=== PATIENT | female | born 2000 | race Caucasian/White ===

== ENCOUNTER 2023-04-30 20:24 | Outpatient (REF) | payer OTHER, SELFPAY | END 2023-04-30 20:25 | disposition home or self-care (01) | LOC: LAB 20:24 | PROVIDERS: PCP Nurse Practitioner Primary Care; Visit Provider Nurse Practitioner Primary Care | DX: J02.9 Acute pharyngitis, unspecified (principal) | CPT/HCPCS: 87070 ==

== ENCOUNTER 2023-07-01 22:22 | Outpatient (REF) | payer OTHER, SELFPAY ==
[2023-07-01 23:14] LABS: Adenovirus NOT DETECTED (NOT DETECTE); Bordetella parapertussis NOT DETECTED (NOT DETECTE); Coronavirus 229E NOT DETECTED (NOT DETECTE); Coronavirus HKU1 NOT DETECTED (NOT DETECTE); Coronavirus NL63 NOT DETECTED (NOT DETECTE); Coronavirus OC43 NOT DETECTED (NOT DETECTE); Human Metapneumovirus NOT DETECTED (NOT DETECTE); Human Rhinovirus/Enterovirus NOT DETECTED (NOT DETECTE); Influenza A NOT DETECTED (NOT DETECTE); Influenza B NOT DETECTED (NOT DETECTE); Mycoplasma pneumoniae NOT DETECTED (NOT DETECTE); Parainfluenza Virus 1 NOT DETECTED (NOT DETECTE); Parainfluenza Virus 2 NOT DETECTED (NOT DETECTE); Parainfluenza Virus 3 NOT DETECTED (NOT DETECTE); Parainfluenza Virus 4 NOT DETECTED (NOT DETECTE); Respiratory Syncytial Virus NOT DETECTED (NOT DETECTE); SARS-CoV-2 NOT DETECTED (NOT DETECTE)
== END 2023-07-01 22:23 | disposition home or self-care (01) ==
LOC: LAB 22:22
PROVIDERS: PCP Nurse Practitioner Primary Care; Visit Provider Nurse Practitioner Primary Care
DX: R05.1 Acute cough (principal)
CPT/HCPCS: 0202U

== ENCOUNTER 2024-06-08 19:31 | Emergency (ER) | payer OTHER, SELFPAY ==
[2024-06-08 20:06] VITALS: BP 158/107; PULSE 109; TEMP 36.8; O2SAT 100; BMI 36.3
[2024-06-08 20:23] LABS: Bilirubin Urine NEGATIVE (NEGATIVE); Blood Urine LARGE (NEGATIVE); Clarity Urine CLEAR (CLEAR); Color Urine LT. YELLOW (YELLOW); Glucose Urine UA NEGATIVE (NEGATIVE); Ketones Urine NEGATIVE (NEGATIVE); Leukocyte Esterase Urine TRACE (NEGATIVE); Nitrite Urine NEGATIVE (NEGATIVE); Protein Urine NEGATIVE (NEG/TRACE); Specific Gravity Urine <=1.005 (1.005-1.025); Urobilinogen Urine 0.2 EU/dL (0.2-1.0)
[2024-06-08 20:26] LABS: HCG Qualitative Urine* NEGATIVE (NEGATIVE); Internal Control Within Normal Limits; Urine Microscopic Indicated YES
[2024-06-08 20:34] LABS: Bacteria Urine TRACE #/HPF (NONE SEEN); Cast Seen? NONE SEEN #/LPF (NONE SEEN); Crystals Seen? None Seen #/HPF (None Seen); Mucus Urine NONE SEEN (NONE SEEN); Squamous Epithelial Cell Urine FEW #/LPF (NONE/RARE)
[2024-06-08 20:35] LABS: Urine Culture Indicated NO
--- NOTE | 2024-06-08 21:02 | ED_ITS ---
HPI - Female Genitourinary General Chief complaint: Urogenital-Female Stated complaint: Vaginal Bleeding Time Seen by Provider: 06/08/24 20:20 Source: patient Mode of arrival: walk-in Limitations: no limitations History of Present Illness HPI Narrative: This 23-year-old female presents for evaluation of intermittent vaginal spotting despite having her period in the third week of April. She is somewhat concerned for . She is having intermittent lower abdominal cramping but no pain. She denies any dizziness shortness of breath or syncope. She is not passing large clots. She does not have any concern for STDs. She does not follow-up with an RESISTOR TESTING MACHINE OPERATOR. She has not had any fever, cough, chest pain or shortness of breath. Related Data Allergies Allergy/AdvReac Type Severity Reaction Status Date / Time Penicillins Allergy Intermediate Swelling Verified 06/08/24 20:11 of Lip/Tongue/Throat Review of Systems ROS Status of ROS 10 or more systems reviewed and unremark able except as noted in history and below PFSH PFSH Social History Little interest or pleasure in doing things: not at all Feeling down, depressed, or hopeless: not at all Exam Narrative Exam Narrative: Vital signs and Nursing Notes reviewed: Patient is afebrile, she is mildly tachycardic with a pulse of 109, blood pressure is elevated 158/107, she is not hypoxic with pulse ox of 100% on room air General: Awake, alert, oriented, no acute distress, lying comfortably on the stretcher, laughing, interacting with her [id number], no respiratory distress HEENT: Normocephalic atraumatic, mucous membranes are moist and pink, eyes are clear, normal conjunctiva, vision is grossly intact Chest: Lungs are clear to auscultation with good air entry, there is no wheezing rhonchi or rales appreciated no accessory muscle use, patient is speaking in complete sentences-no chest wall tenderness to palpation CVS: Regular rate and rhythm S1-S2 at 90 on exam with no murmurs rubs or gallops, pulses are brisk and equal bilaterally ABD: Obese, soft, nondistended, nontender, no rebound guarding or rigidity, bowel sounds are normal-patient declines pelvic exam Extremities: Moving all extremities, no lower extremity tenderness or swelling noted, negative Homans' sign, pulses are brisk and equal bilaterally Skin: Normal in appearance without rash,pallor, petechiae or purpura Neuro: No focal deficits Constitutional Vital Signs, click to edit/add: Last Vital Signs Temp 98.2 F 06/08/24 20:06 Pulse 109 H 06/08/24 20:06 Resp 20 06/08/24 20:06 BP 158/107 H 06/08/24 20:06 Pulse Ox 100 06/08/24 20:06 O2 Del Method Room Air 06/08/24 20:06 Course Vital Signs Vital signs: Vital Signs Temperature 98.2 F 06/08/24 20:06 Pulse Rate 109 H 06/08/24 20:06 Respiratory Rate 20 06/08/24 20:06 Blood Pressure 158/107 H 06/08/24 20:06 Pulse Oximetry 100 06/08/24 20:06 Oxygen Delivery Method Room Air 06/08/24 20:06 Temperature 98.2 F 06/08/24 20:06 Pulse Rate 109 H 06/08/24 20:06 Respiratory Rate 20 06/08/24 20:06 Blood Pressure 158/107 H 06/08/24 20:06 Pulse Oximetry 100 06/08/24 20:06 Oxygen Delivery Method Room Air 06/08/24 20:06 MDM - Female Genitourinary MDM Narrative Medical decision making narrative: This 23-year-old female presents for evaluation of vaginal bleeding/spotting that is light in nature and intermittent for the past week. The patient's mother has had 2 menstrual periods this month and she thinks she may be in sync with her mother's menstrual periods. She does not have any concerns for STDs. She denies any shortness of breath dizziness severe abdominal pain passage of clots or any concerns. Her urine is negative for infection and her test is negative. After hearing this she was relieved and I offered her an outpatient ultrasound requisition. She does not think she needs an outpatient ultrasound but will take the requisition and discuss it over with her . She does not have an RESISTOR TESTING MACHINE OPERATOR and will be referred to Dr. French. Lab Data Labs: Lab Results 06/08/24 Range/Units 20:13 Urine Color Lt. yellow (YELLOW) Urine Clarity Clear (CLEAR) Urine pH 6.0 (5.0-9.0) Ur Specific [place] <=1.005 A (1.005-1.025) Urine Protein Negative (NEG/TRACE) mg/dL Urine Glucose (UA) Negative (NEGATIVE) mg/dL Urine Ketones Negative (NEGATIVE) mg/dL Urine Occult Blood Large A (NEGATIVE) Urine Nitrite Negative (NEGATIVE) Urine Bilirubin Negative (NEGATIVE) Urine Urobilinogen 0.2 (0.2-1.0) EU/dL Ur Leukocyte Esterase Trace A (NEGATIVE) Urine RBC 5-10 A (0-2) #/HPF Urine WBC 2-5 A (NONE SEEN) #/HPF Ur Squamous Epith Cells Few A (NONE/RARE) #/LPF Urine Crystals None seen (None Seen) #/HPF Urine Bacteria Trace A (NONE SEEN) #/HPF Urine Casts None seen (NONE SEEN) #/LPF Urine Mucus None seen (NONE SEEN) Ur Culture Indicated? No Urine HCG, Qual Negative (NEGATIVE) Discharge Plan Discharge Chief Complaint: Urogenital-Female Clinical Impression: Menometrorrhagia Patient Disposition: Home, Self-Care Time of Disposition Decision: 21:03 Condition: Good Print Language: Icelandic Instructions: Menorrhagia (ED) Additional Instructions: Follow-up for an outpatient ultrasound as needed Referrals: Caleb French DO [Physician] - 1 week [facility] [Primary Care Provider] - 1 week
[2024-06-08 21:25] VITALS: PULSE 71; O2SAT 96
== END 2024-06-08 21:26 | disposition home or self-care (01) ==
PROVIDERS: Emergency Provider Emergency Medicine
DX: N92.1 Excessive and frequent menstruation with irregular cycle (principal)
CPT/HCPCS: 81001; 84703; 99283

== ENCOUNTER 2025-09-17 14:14 | Emergency (ER) | payer SELFPAY ==
--- OUTSIDE RECORDS SUMMARY | 2025-09-11 10:03 | XMS_ITS | Encounter Summary ---
Author Organization [facility] tem Address [id number] [address] [place] [address] Care Team Providers Care Glazier Artist Name Role Phone Services, [facility] Primary Care Provider Reason for Visit * ReasonCommentsAbdominal Pain Encounter Details DateTypeDepartmentCare Team (Latest Contact Info)Xjyhsdzezgp36/13/2025 10:03 AM EST - 09/11/2025 11:52 AM [facility] - Emergency [address] [place] [phone] Karthikeyan Johnson MD [address] [place] [address] Urinary tract infection without hematuria, site unspecified (Primary Dx); Epigastric pain; , unspecified gestational age Discharge Disposition: Home Social History Tobacco UseTypesPacks/DayYears UsedDateSmoking Tobacco: Some DaysCigarettes8 Started: 2018Vaping/E-cigarettesPassive Smoke Exposure: YesSmokeless Tobacco: NeverAlcohol UseStandard Drinks/WeekCommentsNo0 (1 standard drink = 0.6 oz pure alcohol)ChildcareAnswerDate TfnrefczPksrzcyztXlshfgu59/12/2019EmploymentAnswer Date HtevheypBfykdfrmocIjfovnj07/12/2019Hunger ScreeningAnswerDate Recorded Within the past 12 months we worried whether our food would run out before we got money to buy more.Never True09/11/2025Within the past 12 months the food we bought just didn't last and we didn't have money to get more.Never True 09/11/2025Purpose - LifeAnswerDate RecordedPurpose and direction in lifeUnknown 1CommentsYesSex and Gender InformationValueDate RecordedSex Assigned at BirthNot on fileLegal UrbXrljpb90/06/2015 12:03 PM EDTGender IdentityNot on fileSexual OrientationNot on filedocumented as of this encounter Last Filed Vital Signs Vital SignReadingTime TakenCommentsBlood Rhtkmhuc378/9409/11/2025 11:50 AM EST Isdfr17312/13/2025 11:50 AM ZYBQuxodnfshby65.5 ??C (97.7 ??F)09/11/2025 10:06 AM ESTRespiratory Nqcs783911/12/2024 11:50 AM ESTOxygen Cbvotghuby478%09/11/2025 11:50 AM ESTInhaled Oxygen Concentration--Udoiwq518.2 kg (232 lb)09/11/2025 10:06 AM PEFObeegs885.6 cm (5' 6 )09/11/2025 10:06 AM ESTBody Mass Index37.45 09/11/2025 10:06 AM ESTdocumented in this encounter Functional Status * BEE (kcal)AnswerDate of XuhkeerxzfJiuvmf532358/13/2025 10:06 AM Lindsay Henson RN * Pain AssessmentQuestionAnswerDate of AssessmentAuthorPain Assessment0-10 09/11/2025 10:06 AM Lindsay Henson RNPain Igver45911/12/2024 10:06 AM EST Lindsay Brambila RN * Indigo Coma ScaleQuestionAnswerDate of AssessmentAuthorEye Kxrwbuy879/13/2025 10:38 AM Lidnsay Henson RNBest Motor Vclzhvmf521/13/2025 10:38 AM Lindsay Oliver RNBest Verbal Eyeztxjv409/13/2025 10:38 AM Lindsay Henson RNGlasgow Coma Scale Enkjr9300/13/2025 10:38 AM Lindsay Henson RN * Vital SignsQuestionAnswerDate of RypziiwdzjJxxqhbDX639/9409/11/2025 11:50 AM Lindsay Henson SQNgjod37039/13/2025 11:50 AM Lindsay Henson RNResp16 09/11/2025 11:50 AM Lindsay Henson FTVbA657818/13/2025 11:50 AM Lindsay Henson RN * Patient ObservationQuestionAnswerDate of YhahcewtkpOgmifnGprzjr4595/13/2025 10:06 AM Lindsay Henson RNWeight3712111/12/2024 10:06 AM Lindsay Henson RN * BSA (Calculated - sq m)AnswerDate of AssessmentAuthor2.21111/12/2024 10:06 AM Lindsay Henson RN * BMI (Calculated)AnswerDate of PoursesopkGstaih17. 10:06 AM Lindsay Oliver RN * Height and WeightQuestionAnswerDate of AssessmentSomerville Hospital MethodStated 09/11/2025 10:06 AM Lindsay Henson [...] Patient Alert, Oriented and Able to Follow FshjsffrCfs90/13/2025 10:09 AM Lindsay Oliver RNFall Prevention ScreenDoes Not Apply to Patient - Screening Ogirnqas39/13/2025 10:09 AM Lindsay Henson RN * Vital SignsQuestionAnswerDate of PagolqrfxpIygomcVnjo50.7111/12/2024 10:06 AM Lindsay Henson RN * NeurologicalQuestionAnswerDate [...] (lb) to have BMI = 25AnswerDate of BrrytwphkcLjohhx019.6111/12/2024 10:06 AM Lindsay Henson RN * [place] Suicide BehaviorQuestionAnswerDate of AssessmentAuthor6. Have you ever [...] 09/11/2025 11:50 AM Lindsay Henson RNRestart Vitals VplbfXke59/13/2025 10:06 AM Lindsay Henson RN * Respiratory (WDL)AnswerDate of MubrzeksknZqktuaQPJ11/13/2025 10:38 AM Lindsay Oliver RN * TB ScreeningQuestionAnswerDate of AssessmentAuthorPatient has prolonged cough? No09/11/2025 10:09 AM ESTMader, , RNPatient has bloody cough?No 09/11/2025 10:09 AM Lindsay Henson RNPatient has fever?No09/11/2025 10:09 AM Lindsay Henson RNPatient has night sweats?No09/11/2025 10:09 AM Lindsay Oliver RNPatient has weight loss?No09/11/2025 10:09 AM Lindsay Henson RNPatient has positive PPD?No09/11/2025 10:09 AM Lindsay Henson RN * [place] Suicide Risk LevelAnswerDate of AssessmentAuthorNot at Suicide Risk 09/11/2025 10:07 AM Lindsay Henson RN * BEE (kcal)AnswerDate of BqgzhnmfawOoxelx933537/13/2025 10:06 AM Lindsay Henson RN * Vital SignsQuestionAnswerDate of IztnakueoySilgafNM276/9409/11/2025 11:50 AM Lindsay Henson RNPulse11409/11/2025 11:50 AM Lindsay Henson RNResp16 09/11/2025 11:50 AM Lindsay Henson RNSpO2100111/12/2024 11:50 AM Lindsay Henson RN * Patient ObservationQuestionAnswerDate of HuqwwbbbuiJgtevvWrlqqg9276/13/2025 10:06 AM Lindsay Henson RNWeight3712111/12/2024 10:06 AM Lindsay Henson RN * BSA (Calculated - sq m)AnswerDate of AssessmentAuthor2.21111/12/2024 10:06 AM Lindsay Henson RN * BMI (Calculated)AnswerDate of NvnbilogktTseuzj19. 10:06 AM Lindsay Oliver RN * Height and WeightQuestionAnswerDate of AssessmentAutFayette County Memorial Hospitalt MethodStated 09/11/2025 10:06 AM Lindsay Henson RN * Vital SignsQuestionAnswerDate of JnwlucpyewTirqbnBgan23.7111/12/2024 10:06 AM Lindsay Henson RN * Weight in (lb) to have BMI = 25AnswerDate of QsamvqriykJqljfn519.6111/12/2024 10:06 AM Lindsay Henson RN documented as of this encounter Mental Status * Pain AssessmentQuestionAnswerEntry DateAuthorPain Assessment0-10111/12/2024 10:06 AM Lindsay Henson RNPain Ewdbg58611/12/2024 10:06 AM Lindsay Henson RN * [place] Coma ScaleQuestionAnswerEntry DateAuthorEye Rvybtbu911/13/2025 10:38 AM Lindsay Henson RNBest Motor Okkurlyy797/13/2025 10:38 AM Lindsay Henson RNBest Verbal Ujyjqkjk858/13/2025 10:38 AM Lindsay Henson RN Indigo Coma Scale Ximpq4876/13/2025 10:38 AM Lindsay Henson RN * Vital SignsQuestionAnswerEntry UnvmOsjovpNS926/9409/11/2025 11:50 AM Lindsay Henson RNPulse11409/11/2025 11:50 AM Lindsay Henson RNResp16111/12/2024 11:50 AM Lindsay Henson RNSpO2100111/12/2024 11:50 AM Lindsay Henson RN * Vital SignsQuestionAnswerEntry YgiiOmdhqiQlnp38.7111/12/2024 10:06 AM Lindsay Henson RN * NeurologicalQuestionAnswerEntry DateAuthorNeuro (WDL)WDL111/12/2024 10:38 AM Lindsay Henson RN documented in this encounter Discharge Instructions * Attachments The following attachments cannot be sent through Care Everywhere. * Abdominal pain (Tajik) documented in this encounter Medications at Time of Discharge MedicationSigDispense QuantityRefillsLast FilledStart DateEnd Date famotidine (PEPCID) 20 mg tablet Take 1 tablet (20 mg total) by mouth in the morning and 1 tablet (20 mg total) before bedtime. 60 tablet 04/18/2025 hydrOXYzine (ATARAX) 50 mg tablet Take 1 tablet (50 mg total) by mouth daily as needed for itching. nitrofurantoin, macrocrystal-monohydrate, (MACROBID) 100 mg capsule Take 1 capsule (100 mg total) by mouth in the morning and 1 capsule (100 mg total) before bedtime. Do all this for 7 days. 14 capsule 512/ polysaccharide iron complex (PRO FE) 180 mg iron capsule Take 1 capsule by mouth 2 (two) times a day. sertraline (ZOLOFT) 25 mg tablet Take 1 tablet (25 mg total) by mouth in the morning.documented as of this encounter ED Notes * Karthikeyan Johnson MD - 09/11/2025 10:11 AM EST Images from the original note were not included. [facility] - EMERGENCY Pt Name: Miladys Fernandez Birthdate: [...] Acne ??? Anxiety ??? Asthma ??? Seizures ([facility]) Past Surgical History: Past Surgical History: Procedure [...] the dictations but occasionally words are mis-transcribed. Karthiekyan Johnson MD 09/11/25 1012 * Lindsay Brambila [...] 09/11/2025 10:27 AM EST POCT , URINE (NUCG)Mdyjdin5509/11/2025 10:25 AM EST POCT NURSING URINE MACROSCOPIC GZGspjfas55/13/2025 10:22 AM EST CBC WITH AUTO CJNIBXNCFXTARMDE00/13/2025 10:18 AM EST HCG-BETA, SERUMSTAT Add-on09/11/2025 10:18 AM EST OGGCMTCCBR64/13/2025 10:18 AM EST COMPREHENSIVE METABOLIC HDPGOKTCD35/13/2025 10:18 AM EST EXTRA TUBES BLUE SJQAhqhskx06/13/2025 10:17 AM EST EXTRA OWBGSTruyjeb74/13/2025 10:17 AM EST documented in this encounter Results * Urine Culture Urine, Clean Catch Midstream (09/11/2025 10:27 AM EST)Component ValueRef RangeTest MethodAnalysis TimePerformed AtPathologist SignatureCULTURE ZMSIROQ45-84,000 ORGANISMS/mL NORMAL UROGENITAL FLORA09/12/2025 1:04 PM EST [facility] LABORATORYSpecimen (Source)Anatomical Location / LateralityCollection Method / VolumeCollection TimeReceived TimeUrineUrine specimen collection, clean catch / Liegpbh5609/11/2025 10:27 AM EST09/11/2025 10:41 AM EST Narrative Authorizing ProviderResult TypeResult Keli Johnson MDMICROBIOLOGY - GENERAL ORDERABLESFinal ResultPerforming OrganizationAddressCity/State/ZIP Code Phone Number [facility] [address] [place] [address], * (ABNORMAL) POCT , urine (09/11/2025 10:25 AM EST)ComponentValueRef RangeTest MethodAnalysis TimePerformed AtPathologist SignaturePO Urine PregnancyPositive(A)Negative, Blfiiylzqlvqj32/13/2025 10:30 AM ESTPROHOLLYWOOD COMMUNITY HOSPITAL OF VAN NUYSpecimen (Source)Anatomical Location / Laterality Collection Method / VolumeCollection TimeReceived SnfrMgotj53/13/2025 10:25 AM EST09/11/2025 10:30 AM EST Narrative Authorizing ProviderResult TypeResult Klei Johnson MDPOINT OF CARE TEST ORDERABLESFinal ResultPerforming OrganizationAddressCity/State/ZIP CodePhone Number [facility] [address] [place] [address], [place] * (ABNORMAL) POCT Nursing Urine Macroscopic UA (09/11/2025 10:22 AM EST) ComponentValueRef RangeTest MethodAnalysis TimePerformed AtPathologist SignaturePO Urine Specific Gravity1.0251.010, 1.015, 1.020, 1.8991709/11/2025 10:23 AM ESTSELECT [facility] Urine Leukocyte Esterase Small(A)Ptvlfwsk19/13/2025 10:23 AM [facility]PROC[facility] Urine ZdmlonsVjpzkyhaMjxmtjvu69/13/2025 10:23 AM [facility]PROC[facility] Urine pH6.05.0, 6.0, 6.5, 7.0, 7.5, 8.0, 8.5, 5. 10:23 AM ESTPROC[facility] Urine Ahgxnua65 mg/dL(A)Negative 09/11/2025 10:23 AM ESTPROC[facility] Urine Glucose FgxoexhaYdvtvltn72/13/2025 10:23 AM [facility]PROC[facility] Urine VkigebhFmarmclaMbndywqc43/13/2025 10:23 AM ESTPROC[facility] Urine Urobilinogen0.2 E.U./dL09/11/2025 10:23 AM ESTPROC[facility] Urine BlbkrzbruAntivahoDajheawo32/13/2025 10:23 AM ESTPROC[facility] Urine Blood/HGBLarge(A)Negative 09/11/2025 10:23 AM [facility] (Source) Anatomical Location / LateralityCollection Method / VolumeCollection Time Received BzowLndvl16/13/2025 10:22 AM EST09/11/2025 10:23 AM EST Narrative Authorizing ProviderResult TypeResult StatusPaul R Walker MDPOINT OF CARE TEST ORDERABLESFinal ResultPerforming OrganizationAddressCity/State/ZIP CodePhone Number [facility] [address] [facility] [place] [address], * HCG, Quantitative, (09/11/2025 10:18 AM EST)ComponentValueRef Range Test MethodAnalysis TimePerformed AtPathologist SignatureSERUM B HCG,3RD I.S. 60mIU/mL09/11/2025 11:29 AM ESTWhite [facility] (Source)Anatomical Location / LateralityCollection Method / VolumeCollection TimeReceived TimeBloodVenous blood / UnknownVenipuncture / Kytxlge5609/11/2025 10:18 AM EST09/11/2025 10:19 AM EST Narrative [facility] - 09/11/2025 11:29 AM EST WEEKS (SINCE [...] trophoblastic or nontrophoblastic neoplasms. Authorizing ProviderResult TypeResult Keli HALLMAN BLOOD ORDERABLES Final ResultPerforming OrganizationAddressCity/State/ZIP CodePhone Number [facility] [address] [facility] [place] [address], * Lipase (09/11/2025 10:18 AM EST)ComponentValueRef RangeTest MethodAnalysis TimePerformed AtPathologist LxbgpytdsBQTGDR5007 - 40 U/L111/12/2024 10:38 AM ESTPROMEDICA NORTHBAY MEDICAL CENTERpecimen (Source)Anatomical Location / LateralityCollection Method / VolumeCollection TimeReceived TimeBloodVenous blood / UnknownVenipuncture / Ydnlycj1909/11/2025 10:18 AM EST09/11/2025 10:19 AM EST Narrative Authorizing ProviderResult TypeResult StatusPaul R Walker MDLAB BLOOD ORDERABLES Final ResultPerforming OrganizationAddressCity/State/ZIP CodePhone Number [facility] [address] [place] [address], * (ABNORMAL) Comprehensive metabolic panel (09/11/2025 10:18 AM EST)Component ValueRef RangeTest MethodAnalysis TimePerformed AtPathologist SignatureSODIUM 294928 - 146 mmol/L111/12/2024 10:41 AM [facility] POTASSIUM3.63.5 - 5.0 mmol/L111/12/2024 10:41 AM [facility] HOSPITALCHLORIDE10598 - 109 mmol/L111/12/2024 10:41 AM [facility] HOSPITALCARBON DEBMUDG7728 - 32 mmol/L111/12/2024 10:41 AM EST [facility]ITALANION GAP75 - 15 mmol/L111/12/2024 10:41 AM [facility] HOSPITALBLOOD UREA QLSMRTKW080 - 23 mg/dL 09/11/2025 10:41 AM [facility] HOSPITALCREATININE0.780.40 - 1.00 mg/dL09/11/2025 10:41 AM [facility] HOSPITALComment: METHOD TRACEABLE TO IDMS GHSOYQUAQOFSWOQ275(H)65 - 99 mg/dL09/11/2025 10:41 AM [facility] HOSPITALCALCIUM8.98.5 - 10.5 mg/dL09/11/2025 10:41 AM [facility] HOSPITALTOTAL PROTEIN7.96.0 - 8.0 g/dL 09/11/2025 10:41 AM [facility] HOSPITALALBUMIN4.13.2 - 5.3 g/dL09/11/2025 10:41 AM [facility] HOSPITALALKALINE QPWWQFGZJWM5533 - 130 U/L111/12/2024 10:41 AM [facility] HOSPITALAST16<=41 U/L111/12/2024 10:41 AM [facility]ITALALT17<=31 U/L111/12/2024 10:41 AM [facility] HOSPITALBILIRUBIN,TOTAL0.50.3 - 1.2 mg/dL09/11/2025 10:41 AM [facility]IAL HOSPITALEGFR Non-Race Dependent>90>=60 ml/min/1.73sq.m 09/11/2025 10:41 AM [facility] HOSPITALComment: eGFR not reported due to non-numeric value for Creatinine. Reported eGFR is based on the CKD-EPI 2020 equation that does not use a race coefficient. Specimen (Source)Anatomical Location / LateralityCollection Method / Volume Collection TimeReceived TimeBloodVenous blood / UnknownVenipuncture / Unknown 09/11/2025 10:18 AM EST09/11/2025 10:19 AM EST Narrative Authorizing ProviderResult TypeResult StatusKarthikeyan HALLMAN BLOOD ORDERABLES Final ResultPerforming OrganizationAddressCity/State/ZIP CodePhone Number [facility] [address] * (ABNORMAL) CBC auto differential (09/11/2025 10:18 AM EST)ComponentValueRef RangeTest MethodAnalysis TimePerformed AtPathologist GkdhesxxtRAT57.7(H)4 - 11 10^L111/12/2024 10:30 AM [facility] HOSPITALRBC Count4.69 3.8 - 5.2 10^12L111/12/2024 10:30 AM [facility] Eeegzelbti63.311.7 - 15.5 g/dL09/11/2025 10:30 AM [facility]IAL HOSPITALHematocrit39.135 - 47 %09/11/2025 10:30 AM [facility] HOSPITALMCV8380 - 100 fL09/11/2025 10:30 AM [facility] HOSPITALMCH28.427 - 34 pg09/11/2025 10:30 AM [facility] HOSPITALMCHC34.032 - 36 g/dL09/11/2025 10:30 AM [facility] HOSPITALRDW12.911.5 - 15 %09/11/2025 10:30 AM ESTFAYETTE COUNTY MEMORIAL HOSPITALPlatelet Xkxex308974 - 450 10^09/11/2025 10:30 AM ESTPROSAN JOSE MEDICAL CENTERMPV7.97 - 12 fL09/11/2025 10:30 AM EST [facility]ENTERNeutrophils %61.2%09/11/2025 10:30 AM EST [facility] HOSPITALLymphocytes %31.3%09/11/2025 10:30 AM EST [facility] HOSPITALMonocytes %6.0%09/11/2025 10:30 AM EST [facility] HOSPITALEosinophils %1.0%09/11/2025 10:30 AM EST [facility]ITALBasophils %0.5%09/11/2025 10:30 AM EST [facility]OS[facility]ITALNeutrophils Absolute (A)7.2(H)1.5 - 6.6 10^09/11/2025 10:30 AM ESTPROSAN JOSE MEDICAL CENTERLymphocytes Absolute3.7(H)1.0 - 3.5 10^09/11/2025 10:30 AM ESTPROMIDLANDS COMMUNITY H[facility]PITAL HOSPITALMonocytes Absolute0.70.0 - 0.9 10^L111/12/2024 10:30 AM EST [facility] HOSPITALEosinophils Absolute0.10.0 - 0.4 10^9/L 09/11/2025 10:30 AM ESTPROSAN JOSE MEDICAL CENTERBasophils Absolute 0.10.0 - 0.2 10^09/11/2025 10:30 AM [facility] Differential TypeAUTOMATED EIJGRAVNLXVB86/13/2025 10:30 AM [facility]ENTERpecimen (Source)Anatomical Location / Laterality Collection Method / VolumeCollection TimeReceived TimeBloodVenous blood / UnknownVenipuncture / Dvbdtmh0309/11/2025 10:18 AM EST09/11/2025 10:19 AM EST Narrative Authorizing ProviderResult TypeResult StatusKarthikeyan HALLMAN BLOOD ORDERABLES Final ResultPerforming OrganizationAddressCity/State/ZIP CodePhone Number [address] [address], * Light Blue Top (09/11/2025 10:17 AM EST)ComponentValueRef RangeTest Method Analysis TimePerformed AtPathologist SignatureExtra TubeAuto Resulted 09/11/2025 12:01 PM ESTPROMEDICA NORTHBAY MEDICAL CENTERpecimen (Source) Anatomical Location / LateralityCollection Method / VolumeCollection Time Received TimeBloodVenous blood / Bmjhkil3709/11/2025 10:17 AM EST09/11/2025 10:23 AM EST Narrative Authorizing ProviderResult TypeResult StatusKarthikeyan HALLMAN BLOOD ORDERABLES Final ResultPerforming OrganizationAddressCity/State/[facility] CodePhone Number [address] [address], documented in this encounter Visit Diagnoses Diagnosis [...] dose, Indication: Uncomplicated UTI Given09/11/2025 11:46 AM JPY394 mg ondansetron (PF) (ZOFRAN) injection 4 mg 4 mg, intravenous, Once, On 09/11/25 at 1058, For 1 dose, Intravenous administration preferred to be given over 2-5 minutes. Given09/11/2025 11:00 AM EST4 mg sodium chloride 0.9 % bolus 500 mL, intravenous, at 968 mL/hr, Administer over 31 Minutes, Once, On 09/11/25 at 1058, For 1dose New Bag09/11/2025 11:03 AM EEU476 mL968 mL/hr sodium chloride 0.9 % flush [...] 1134 (Stop Bag - Provider: Lindsay Brambila, SINAN) Medication Order/ sodium chloride 0.9 % flush 3 mL 3 mL, intravenous, As needed, line care, before and after each intermittent use, Starting on 09/11/25 at 1011 documented in this encounter Care Teams Team MemberRelationsSutter Roseville Medical CenterpecialtyStart DateEnd [address] [place], [place] PCP - GeneralFavaarnold Medicine04/18/25documented as of this encounter
--- OUTSIDE RECORDS SUMMARY | 2025-09-11 16:01 | XMS_ITS | Encounter Summary ---
Author Organization [facility] tem Address [id number] [address] [place] [address] Care Team Providers Care Senior Insight Manager International Name Role Phone Services, [facility] Primary Care Provider Reason for Visit * ReasonCommentsAbdominal PainPt is 4-6 week . Was here earlier today and states that her ABD pain and nausea is not better. Encounter Details DateTypeDepartmentCare Team (Latest Contact Info)Slotbkvpono51/13/2025 4:01 PM EST - 09/11/2025 4:59 PM [facility] - Emergency [address] [place] [id number] Uriel Nesbitt, DO [address] [place] [address] Nausea and vomiting in prior to 22 weeks gestation (Primary Dx) Discharge Disposition: Home Social History Tobacco UseTypesPacks/DayYears UsedDateSmoking Tobacco: Some DaysCigarettes8 Started: 2018Vaping/E-cigarettesPassive Smoke Exposure: YesSmokeless Tobacco: NeverAlcohol UseStandard Drinks/WeekCommentsNo0 (1 standard drink = 0.6 oz pure alcohol)ChildcareAnswerDate TnnimdtbKkchhxnfjFyxkstl89/12/2019EmploymentAnswer Date EsgyhmpjTeioowqkbwPthsbho98/12/2019Hunger ScreeningAnswerDate Recorded Within the past 12 months we worried whether our food would run out before we got money to buy more.Never True09/11/2025Within the past 12 months the food we bought just didn't last and we didn't have money to get more.Never True 09/11/2025Purpose - LifeAnswerDate RecordedPurpose and direction in lifeUnknown 1CommentsYesSex and Gender InformationValueDate RecordedSex Assigned at BirthNot on fileLegal VdiJvhber47/06/2015 12:03 PM EDTGender IdentityNot on fileSexual OrientationNot on filedocumented as of this encounter Last Filed Vital Signs Vital SignReadingTime TakenCommentsBlood Mxuvixrp546/8109/11/2025 4:53 PM EST Cdokk695309/11/2025 4:53 PM ESTTemperature--Respiratory Lehq107111/12/2024 4:53 PM ESTOxygen Uqvhtojrxw52%09/11/2025 4:53 PM ESTInhaled Oxygen Concentration-- Uwvcdd731.2 kg (232 lb)09/11/2025 4:07 PM OXMWmgzez201.6 cm (5' 6 )09/11/2025 4:07 PM ESTBody Mass Index37.45111/12/2024 4:07 PM ESTdocumented in this encounter Functional Status * SafetyQuestionAnswerDate of AssessmentAuthorCall Frank Within ReachYes 09/11/2025 4:44 PM Sol Murray RNBed In Lowest MdeerykpWnx47/13/2025 4:44 PM Sol Murray RNBed Wheels MiumhqFwr94/13/2025 4:44 PM EST Sol Richards RN * ED Hunger ScreeningQuestionAnswerDate of AssessmentAuthorWithin the past 12 months the food we bought just didn't last and we didn't have money to get more.Never True09/11/2025 4:10 PM Maximino Kumar Jr., RNWithin the past 12 months we worried whether our food would run out before we got money to buy more.Never True09/11/2025 4:10 PM Maximino Kumar Jr., RN * BEE (kcal)AnswerDate of NmjyqffnmeVqkylc057000/13/2025 4:07 PM Maximino Kumar Jr., SINAN * Pain AssessmentQuestionAnswerDate of AssessmentAuthorPain LocationAbdomen 09/11/2025 4:07 PM Maximino Kumar Jr., RNPain OfyvdjdaxbcLghflc33/13/2025 4:07 PM Maximino Kumar Jr., RNPain TypeAcute pain09/11/2025 4:07 PM Maximino Espinoza Jr., RNPain Assessment0-10111/12/2024 4:07 PM Maximino Kumar Jr., RNPain Eoyqj2194/13/2025 4:07 PM Maximino Kumar Jr., RN * [place] Coma ScaleQuestionAnswerDate of AssessmentAuthorEye Rcpdmsy740/13/2025 4:09 PM Maximino Kumar Jr., RNBest Motor Dlnektiz667/13/2025 4:09 PM Maximino Espinoza Jr., RNBest Verbal Quwddtcn014/13/2025 4:09 PM Maximino Kumar Jr., RNGlasgow Coma Scale Rmyqx1647/13/2025 4:09 PM Maximino Kumar Jr. RN * Patient ObservationQuestionAnswerDate of NqjunhsvxiApjqjzTnshzq2836/13/2025 4:07 PM Maximino Kumar Jr. ENXyfdtd555840/13/2025 4:07 PM Maximino Kumar Jr. RN * BSA (Calculated - sq m)AnswerDate of AssessmentAuthor2. 4:07 PM Maximino Kumar Jr., RN * BMI (Calculated)AnswerDate of YddalbwentSuikdq71. 4:07 PM Maximino Espinoza Jr., RN * Height and WeightQuestionAnswerDate of AssessmentAuthorHeight MethodStated 09/11/2025 4:07 PM Maximino Kumar Jr., RN * Abuse Indicator ScreeningQuestionAnswerDate of AssessmentAuthorSafe in HomeYes 09/11/2025 4:12 PM Sol Murray RNDo you feel safe in your relationship(s)?Yes09/11/2025 4:12 PM Sol Murray RNAre you in immediate danger?No09/11/2025 4:12 PM Sol Murray RN * Harm Risk AssessmentQuestionAnswerDate of AssessmentAuthorAre you having thoughts of homicide or causing harm to others?No09/11/2025 4:09 PM Maximino Kumar Jr., RN * Blood HistoryQuestionAnswerDate of AssessmentAuthorHave you had a blood transfusion?No09/11/2025 4:10 PM Maximino Kumar Jr. RNWould you accept a blood transfusion in a life-threatening situation?Yes09/11/2025 4:10 PM Maximino Espinoza Jr. RN * Fall Prevention Screening 18-64 yearsQuestionAnswerDate of AssessmentAuthorIs Patient Alert, Oriented and Able to Follow XuhycefnFqq32/13/2025 4:10 PM Maximino Espinoza Jr., RNFall Prevention ScreenDoes Not Apply to Patient - Screening Qgeuscnn18/13/2025 4:10 PM Maximino Kumar Jr. RN * Vital SignsQuestionAnswerDate of EelxcfzkpxRlajzhRG351/8109/11/2025 4:53 PM Sol Murray RNPulse5609/11/2025 4:53 PM Sol Murray RNResp18 09/11/2025 4:53 PM Sol Murray RNSpO29809/11/2025 4:53 PM Sol Tavares RNBP LocationLeft arm09/11/2025 4:53 PM Sol Murray RNBP ApsnnhUosrrykdp56/13/2025 4:53 PM Sol Murary RNPatient Position Yztwodg6709/11/2025 4:53 PM Sol Murray RN * Oxygen TherapyQuestionAnswerDate of AssessmentAuthorO2 DeviceNone (Room air) 09/11/2025 4:53 PM Sol Murray RN * Adult Sepsis RiskQuestionAnswerDate of AssessmentAuthorSIRS Criteria0 09/11/2025 4:40 PM ESTAdyground, ClindocRisk of Sepsis v.20.512 4:40 PM ESTBackground, Cl[place]oc * AirwayQuestionAnswerDate of AssessmentAuthorAirway (WDL)WDL111/12/2024 4:09 PM Maximino Kumar Jr., SINAN * BreathingQuestionAnswerDate of AssessmentAuthorBreathing (WDL)WDL111/12/2024 4:09 PM Maximino Kumar Jr., SINAN * CirculationQuestionAnswerDate of AssessmentAuthorCirculation (WDL)WDL 09/11/2025 4:09 PM Maximino Kumar Jr., RN * DisabilityQuestionAnswerDate of AssessmentAuthorDisability (WDL)WDL111/12/2024 4:09 PM Maximino Kumar Jr., RN * Family/Water Supply Technician NotifiedQuestionAnswerDate of AssessmentAuthorName of Person Notified/or to be Notified of IqorcowvqYpibpq84/13/2025 4:09 PM Maximino Espinoza Jr., RNFamily/Water Supply Technician notified of Emergency Department Admission?Family bdpywvb5809/11/2025 4:09 PM Maximino Kumar Jr. RN * Weight in (lb) to have BMI = 25AnswerDate of DyuyorebasZssfzm388.6111/12/2024 4:07 PM Maximino Kumar Jr. RN * [place] Suicide BehaviorQuestionAnswerDate of AssessmentAuthor6. Have you ever done anything, started to do anything, or prepared to do anything to end your life?No09/11/2025 4:09 PM Maximino Kumar Jr. RN * Suicidal Ideation (Last Month)QuestionAnswerDate of AssessmentAuthor1. In the last month have you wished you were or wished you could go to sleep and not wake up?No09/11/2025 4:09 PM Maximino Kumar Jr., SINAN2. In the last month have you actually had any thoughts of killing yourself?No09/11/2025 4:09 PM Maximino Kumar Jr., RNAble to assess?Yes09/11/2025 4:09 PM Maximino Kumar Jr., RN * AbdominalQuestionAnswerDate of AssessmentAuthorLast BM Gwky4107429/13/2025 4:41 PM Sol Murray RNPassing InhqddKpp02/13/2025 4:41 PM Sol Tavares RNBowel Sounds (All Quadrants)Myguam1309/11/2025 4:41 PM Sol aTvares RNAbdomen AssessmentSoft;Obese09/11/2025 4:41 PM Sol Tavares RNGI SymptomsNausea;Cmgvybtr45/13/2025 4:41 PM Sol Murray RNGastrointestinal (WDL)X111/12/2024 4:41 PM Sol Murray RN * GenitourinaryQuestionAnswerDate of AssessmentAuthorGenitourinary (WDL)WDL 09/11/2025 4:44 PM Sol Murray RN * Vitals TimerQuestionAnswerDate of AssessmentAuthorRestart Vitals TimerYes 09/11/2025 4:53 PM Sol Murray RN * TB ScreeningQuestionAnswerDate of AssessmentAuthorPatient has prolonged cough? No09/11/2025 4:10 PM Maximino Kumar Jr., RNPatient has bloody cough?No 09/11/2025 4:10 PM Maximino Kumar Jr., RNPatient has fever?No09/11/2025 4:10 PM Maximino Kumar Jr., RNPatient has night sweats?No09/11/2025 4:10 PM Maximino Kumar Jr., RNPatient has weight loss?No09/11/2025 4:10 PM Maximino Espinoza Jr., RNPatient has positive PPD?Cdojhvb1709/11/2025 4:10 PM Maximino Espinoza Jr., RN * [place] Suicide Risk LevelAnswerDate of AssessmentAuthorNot at Suicide Risk 09/11/2025 4:09 PM Maximino Kumar Jr., RN * SafetyQuestionAnswerDate of AssessmentAuthorHospital ID HzhuHz0609/11/2025 4:44 PM Sol Murray RNCall Frank Within DvvjiGta03/13/2025 4:44 PM Sol Tavares RNBed In Lowest JbhvyssdRiw04/13/2025 4:44 PM Sol Murray RNBed Wheels EtvpwbZzb56/13/2025 4:44 PM Sol Murray RNSide Rails Up (Number)112 4:44 PM Sol Murray RN * BEE (kcal)AnswerDate of JhmjmlsgwjIylysh348856/13/2025 4:07 PM Maximino Kumar Jr., RN * Patient ObservationQuestionAnswerDate of ScxchxrafrMyasgcEepkud1808/13/2025 4:07 PM Maximino Kumar Jr., RNWeight3712111/12/2024 4:07 PM Maximino Kumar Jr., RN * BSA (Calculated - sq m)AnswerDate of [facility] Systemr2.21111/12/2024 4:07 PM Maximino Kumar Jr., RN * BMI (Calculated)AnswerDate of RzfpisqblhCteavu10. 4:07 PM Maximino Espinoza Jr., RN * Height and WeightQuestionAnswerDate of [facility] MethodStated 09/11/2025 4:07 PM Maximino Kumar Jr., RN * Vital SignsQuestionAnswerDate of PiyjrvumemMkuahoVD025/8109/11/2025 4:53 PM Sol Murray RNPulse5609/11/2025 4:53 PM Sol Murray RNResp18 09/11/2025 4:53 PM Sol Murray RNSpO29809/11/2025 4:53 PM Sol Tavares RNBP LocationLeft arm09/11/2025 4:53 PM Sol Murray RNBP AtawcrKjodwjrjo88/13/2025 4:53 PM Sol Murray RNPatient Position Bcxzuae0409/11/2025 4:53 PM Sol Murray RN * Weight in (lb) to have BMI = 25AnswerDate of KidebwjiyyFdqbnd067.6111/12/2024 4:07 PM Maximino Kumar Jr. RN documented as of this encounter Mental Status * Pain AssessmentQuestionAnswerEntry DateAuthorPain DajvcvenGjsldcr92/13/2025 4:07 PM Maximino Kumar Jr., RNPain WybemcpjuhoDblmqr88/13/2025 4:07 PM Maximino Espinoza Jr., RNPain Assessment0-10111/12/2024 4:07 PM Maximino Kumar Jr., BATOOLain Itkbb0404/13/2025 4:07 PM Maximino Kumar Jr., RN * [place] Coma ScaleQuestionAnswerEntry DateAuthorEye Vfbanpk591/13/2025 4:09 PM Maximino Kumar Jr., RNBest Motor Weeavgbu592/13/2025 4:09 PM Maximino Kumar Jr., RNBest Verbal Hidgjdoa631/13/2025 4:09 PM Maximino Kumar Jr., RNGlasgow Coma Scale Wlbqy1118/13/2025 4:09 PM Maximino Kumar Jr., RN * Vital SignsQuestionAnswerEntry YzelKxnhzeOO317/8109/11/2025 4:53 PM Sol Tavares RNPulse5609/11/2025 4:53 PM Sol Murray RNResp18 09/11/2025 4:53 PM Sol Murray RNSpO29809/11/2025 4:53 PM Sol Tavares RNBP LocationLeft arm09/11/2025 4:53 PM Sol Murray RNBP YkeycjYbfrhtjci92/13/2025 4:53 PM Sol Murray RNPatient Position Sjkiawm8909/11/2025 4:53 PM Sol Murray RN * Oxygen TherapyQuestionAnswerEntry DateAuthorO2 DeviceNone (Room air)09/11/2025 4:53 PM Sol Murray RN * AbdominalQuestionAnswerEntry DateAuthorLast BM Ulme2383900/13/2025 4:41 PM EST Sol Richards RNPassing NtpawfJec91/13/2025 4:41 PM Sol Murray RNAbdomen AssessmentSoft;Obese09/11/2025 4:41 PM Sol Murray RNGI SymptomsNausea;Jgeuwjan58/13/2025 4:41 PM Sol Murray RN documented in this encounter Discharge Instructions * Discharge Instructions* Uriel Nesbitt DO - 09/11/2025 4:48 PM EST Come back next week for gallbladder ultrasound, or sooner if your symptoms worsen. Zuly, acupressure, inhalation of alcohol pads can help with nausea and vomiting in . Try simplifying your diet the next day to give yourself the best chance of keeping food/fluids down. Diclegis is a first line medication for nausea and vomiting, but metoclopramide can be tried if your symptoms persist. documented in this encounter Medications at Time of Discharge MedicationSigDispense QuantityRefillsLast FilledStart DateEnd Date doxylamine-pyridoxine, vit B6, (DICLEGIS) 10-10 mg tablet,delayed release (DR/EC) Indications:Nausea and vomiting in prior to 22 weeks gestationTwo tablets at bed on days 1 and 2; if worse, take 1 tablet in morning and 2 tablets at bedtime on day 3; if worse, may take 1 tablet in morning, 1 tablet mid- afternoon, and 2 tablets at bedtime on day 4. 11 tablet 09/11/2025 famotidine (PEPCID) 20 mg tablet Take 1 [...] all this for 7 days. 14 capsule / polysaccharide iron complex (PRO FE) 180 mg iron capsule Take 1 capsule by mouth 2 (two) times a day. sertraline (ZOLOFT) 25 mg tablet Take 1 tablet (25 mg total) by mouth in the morning. metoclopramide (REGLAN) 10 mg tablet Indications:Nausea and vomiting in prior to 22 weeks gestationTake 1 tablet (10 mg total) by mouth every 6 (six) hours as needed (vomiting) for up to 3 days. 12 tablet documented as of this encounter ED Notes * Uriel Nesbitt, DO - 09/11/2025 4:29 PM EST Images from the original note were not included. [facility] - EMERGENCY Pt Name: Miladys Fernandez Birthdate: 2000 Chief Complaint: Chief Complaint Patient presents with Abdominal Pain Pt is 4-6 week . Was here earlier today and states that her ABD pain and nausea is not better. History of Present Illness: Initial evaluation done by Dr. Hipolito Nesbitt at 4:30 PM Pt is a 24 y.o. female presenting to ED with chief complaint of abdominal pain. Pt reports she has had abdominal pain since 9:15 AM. She presented to the ED this morning and was given a pill for her UTI. She states she vomited in the ED prior to discharge, went home, took the pill, and vomited about an hour later at 1:30 PM. Her states he did not see the pill in her vomit. She describes her pain as achy and states it is constant, but states she is feeling slightly better after vomiting.She confirms she is approximately 5 weeks along in her second , and denies any morning sickness with her first. Pt states she ate steak last night around 8-9 PM, and did not eat anything today. She states she has had pain similar before when she was having heart burn, and states she was given Zofran that gave her relief. Pt denies any dyspnea, and states she is unsure of her family hx with kidney stones. History provided by: Spouse and patient Past Medical History: Past Medical History: Diagnosis Date Acne Anxiety Asthma Seizures (CMS-HCC) Past Surgical History: Past Surgical History: Procedure Laterality Date TYMPANOSTOMY TUBE PLACEMENT Family History: Family History Problem Relation Age of Onset Anemia Mother Migraines Mother Arrhythmia Mother Asthma Father Autism Father Asthma Brother Autism Brother Diabetes Maternal Uncle Diabetes Maternal Grandfather Stroke Paternal Grandmother Heart defect Neg Hx Seizures Neg Hx Hypertension Neg Hx Heart attack Neg Hx Sudden Neg Hx Clotting disorder Neg Hx High Cholesterol Neg Hx Thyroid Issues Neg Hx Social History: Social History Socioeconomic History Marital status: Tobacco Use Smoking status: Some Days Types: Vaping/E-cigarettes , Cigarettes Start date: 2017 Passive exposure: Yes Smokeless tobacco: Never Substance and Sexual Activity Alcohol use: No Drug use: No Sexual activity: Yes control/protection: None Social Drivers of Health Food Insecurity: No Food Insecurity (09/11/2025) Hunger Screening Food Insecurity - Worry: Never True Food Insecurity - Inability: Never True Review of Systems: Review of Systems Physical Exam: ED Triage Vitals Temp Pulse Resp BP SpO2 -- -- -- -- 09/11/25 1609 100 % Temp src Heart Rate Source Patient Position BP Location FiO2 (%) -- -- 09/11/25 1607 09/11/25 1607 -- Sitting Left arm Vitals: 09/11/25 1607 09/11/25 1609 SpO2: 100% Height: 167.6 cm (5' 6 ) Weight: 105.2 kg (232 lb) Physical Exam Vitals reviewed. Constitutional: Appearance: She is obese. HENT: Head: Normocephalic and atraumatic. Eyes: Conjunctiva/sclera: Conjunctivae normal. Cardiovascular: Rate and Rhythm: Normal rate and regular rhythm. Pulmonary: Effort: Pulmonary effort is normal. Breath sounds: Normal breath sounds. Abdominal: General: There is no distension. Palpations: Abdomen is soft. Tenderness: There is no right CVA tenderness or left CVA tenderness. Musculoskeletal: General: Normal range of motion. Cervical back: Normal range of motion and neck supple. Skin: General: Skin is warm and dry. Neurological: General: No focal deficit present. Mental Status: She is alert and oriented to person, place, and time. GCS: GCS eye subscore is 4. GCS verbal subscore is 5. GCS motor subscore is 6. Procedure: Procedures Re-evaluation: Theersa Castellon (scribe), documented on behalf and in the presence of Dr. Hipolito Nesbitt. Medical Decision Making Pt's symptoms improved after an episode of vomiting. After shared decisionmaking conversation, willforego any antiemetics, analgesic, or further workup options offered to patient. No vaginal bleeding. Risk Prescription drug management. ED Course: Clinical Impressions as of 09/11/25 1650 Nausea and vomiting in prior to 22 weeks gestation . ED Disposition ED Disposition Discharge Date/Time Sat Sep 11, 2025 4:47 PM Comment At the time of discharge, the plan has been discussed with the patient regarding the diagnosis and prognosis. All questions have been answered. Verbal discharge instructions were discussed with the patient. The patient has been advised to follow up w ith their Primary Care Provider within 1 week. The patient was also instructed to return to the ED if their symptoms change, worsen, new symptoms arise or if they have any additional concerns. Medications Prescribed this Visit Sig metoclopramide (REGLAN) 10 mg tablet Take 1 tablet (10 mg total) by mouth every 6 (six) hours as needed (vomiting) for up to 3 days. doxylamine-pyridoxine, vit B6, (DICLEGIS) 10-10 mg tablet,delayed release (DR/EC) Two tablets at bed on days 1 and 2; if worse, take 1 tablet in morning and 2 tablets at bedtime on day 3; if worse, may take 1 tablet in morning, 1 tablet mid-afternoon, and 2 tablets at bedtime on day 4. . Please note that portions of this note were completed with a voice recognition program. Efforts were made to edit the dictations but occasionally words are mis-transcribed. Theresa Guerrero 09/11/25 1641 Uriel Nesbitt DO 09/11/25 1650 documented in this encounter Plan of Treatment Not on file documented as of this encounter Visit Diagnoses Diagnosis Nausea and vomiting in prior to 22 weeks gestation- Primary documented in this encounter Care Teams Team MemberRelationshipSpecialtyStart DateEnd Date Formerly [facility], [facility] [address] [place], [place] PCP - GeneralFamily Medicine04/18/25documented as of this encounter
[2025-09-17 14:34] VITALS: BP 117/83; PULSE 95; TEMP 36.9; O2SAT 100; BMI 36.0
[2025-09-17 15:50] LABS: Hematocrit 38.9 % (36.0-48.0); Hemoglobin 13.1 g/dL (12.0-16.0); Immature Granulocytes Abs Auto 0.06 10^3/uL (0.00-0.03); Immature Granulocytes Pct Auto 0.5 % (0.0-0.5); Lymphocytes Absolute Auto 3.2 10^3/uL (1.2-3.8); Mean Corpuscular HGB Conc 33.7 g/dL (29.9-35.2); Mean Corpuscular Hemoglobin 28.7 pg (26.7-34.0); Mean Corpuscular Volume 85.3 fL (81.0-99.0); Platelet Count 447 10^3/uL (150-450); Red Blood Count 4.56 10^6/uL (4.20-5.40); White Blood Count 11.1 10^3/uL (4.0-11.0)
[2025-09-17 16:09] LABS: Alanine Aminotransferase 35 U/L (14-59); Albumin Globulin Ratio 0.8; Albumin Level 3.5 g/dL (3.4-5.0); Alkaline Phosphatase 73 U/L (46-116); Anion Gap 9.4; Aspartate Amino Transferase 13 U/L (15-37); Blood Urea Nitrogen 6.0 mg/dL (7.0-18.0); Calcium 8.9 mg/dL (8.5-10.1); Carbon Dioxide 26.1 mmol/L (21.0-32.0); Chloride 103 mmol/L (98-107); Estimated GFR (African America >60 (>=60 mL/min/1.73m^2); Estimated GFR (Non-African Ame >60 (>=60 mL/min/1.73m^2); Globulin 4.4 g/dL; Glucose 96 mg/dL (74-106); Potassium 3.5 mmol/L (3.5-5.1); Sodium 135 mmol/L (136-145); Total Protein 7.9 g/dL (6.4-8.2)
--- NOTE | 2025-09-17 17:00 | ED.FEMALEGU1 ---
HPI - Female Genitourinary General Chief complaint: OB/Uterine Contractions Stated complaint: EARLY SPOTTING Time Seen by Provider: 09/17/25 15:32 Source: patient Mode of arrival: walk-in History of Present Illness HPI Narrative: Is coming to us with a almost 5 to 6 weeks history of with some spotting that been going on for the last few days, she did show me some pictures she usually just wipe after urination and that usually when she have blood She went to her primary care doctor who diagnosed with UTI and gave her Macrobid that she is finishing right now Have no abdominal pain no fall or trauma and this is her second , she never had any Related Data Home Medications ?Medication ?Instructions ?Recorded ?Confirmed nitrofurantoin 100 mg PO BID 09/17/25 09/17/25 monohydrate/macrocrystals 100 mg capsule (Macrobid) Allergies Allergy/AdvReac Type Severity Reaction Status Date / Time Penicillins Allergy Intermediate Swelling Verified 09/17/25 14:33 of Lip/Tongue/Throat Review of Systems ROS Status of ROS 10 or more systems reviewed and unremarkable except as noted in history and below PFSH PFSH Social History Little interest or pleasure in doing things: not at all Feeling down, depressed, or hopeless: not at all Exam Narrative Exam Narrative: Nurses notes and vital signs reviewed and patient is not hypoxic. General: Well-appearing and in no apparent distress. Skin: Warm, dry, no pallor noted. No rash. Head: Normocephalic, atraumatic. Neck: Supple, non-tender. Cardiovascular: Regular Rate and Rhythm without murmur, gallop or rub. Respiratory: No accessory muscle use or respiratory distress. Lungs are clear to auscultation, no wheezing, rales or rhonchi Chest Wall: no tenderness Back: No midline thoracic or lumbar vertebral tenderness. No CVA tenderness Musculoskeletal: normal ROM, no calf or popliteal tenderness, no lower extremity edema/swelling GI: Abdomen is soft, non-distended. Normal bowel sounds. No masses appreciated. No tenderness to palpation. No rebound, guarding, or rigidity noted. Neurological: A&O x4. No cranial nerve dysfunction observed. No truncal ataxia. Moves all extremities. Sensation intact. Psychiatric: Cooperative and interactive. Normal mood and affect. Constitutional Vital Signs, click to edit/add: Last Vital Signs Temp 98.4 F 12/19/25 14:34 Pulse 95 H 09/17/25 14:34 Resp 18 09/17/25 14:34 BP 117/83 09/17/25 14:34 Pulse Ox 100 09/17/25 14:34 O2 Del Method Nasal Cannula 09/17/25 14:34 Course Vital Signs Vital signs: Vital Signs Temperature 98.4 F 09/17/25 14:34 Pulse Rate 95 H 09/17/25 14:34 Respiratory Rate 18 09/17/25 14:34 Blood Pressure 117/83 09/17/25 14:34 Pulse Oximetry 100 09/17/25 14:34 Oxygen Delivery Method Nasal Cannula 09/17/25 14:34 Temperature 98.4 F 09/17/25 14:34 Pulse Rate 95 H 09/17/25 14:34 Respiratory Rate 18 09/17/25 14:34 Blood Pressure 117/83 09/17/25 14:34 Pulse Oximetry 100 09/17/25 14:34 Oxygen Delivery Method Nasal Cannula 09/17/25 14:34 MDM - Female Genitourinary MDM Narrative Medical decision making narrative: Patient CBC and chemistry showed no acute pathology and her hCG is 91 which is very low and mostly correlating with possible early although there is also possibility of miscarriage The patient did show me pictures of the spotting and it was very mild and only after urination The patient to follow-up with her OB doctor Dr. French to do a blood workup in 2 days I did explain to the patient that we need to be looking for elevation and monitoring symptoms in case of any pain or increase in bleeding she is to come back to the ER Otherwise avoid exertion The patient to follow-up with the primary care within 2 to 3 days and to come back to the ER in case of any worsening of the current symptoms or any new symptoms or concerns Lab Data Labs: Lab Results 09/17/25 Range/Units 15:41 WBC 11.1 H (4.0-11.0) 10^3/uL RBC 4.56 (4.20-5.40) 10^6/uL Hgb 13.1 (12.0-16.0) g/dL Hct 38.9 (36.0-48.0) % MCV 85.3 (81.0-99.0) fL MCH 28.7 (26.7-34.0) pg MCHC 33.7 (29.9-35.2) g/dL RDW 11.7 (11.0-15.0) % Plt Count 447 (150-450) 10^3/uL MPV 9.6 (9.5-13.5) fL Neut % (Auto) 58.7 (43.0-75.0) % Lymph % (Auto) 29.0 (20.5-60.0) % Gem % (Auto) 7.3 (1.7-12.0) % Eos % (Auto) 3.9 (0.9-7.0) % Baso % (Auto) 0.6 (0.2-2.0) % Neut # (Auto) 6.5 (1.4-6.5) 10^3/uL Lymph # (Auto) 3.2 (1.2-3.8) 10^3/uL Gem # (Auto) 0.8 (0.3-0.8) 10^3/uL Eos # (Auto) 0.4 (0.0-0.7) 10^3/uL Baso # (Auto) 0.1 (0.0-0.1) 10^3/uL Abs Immat Gran (auto) 0.06 H (0.00-0.03) 10^3/uL Imm/Tot Granulo (auto) 0.5 (0.0-0.5) % Sodium 135 L (136-145) mmol/L Potassium 3.5 (3.5-5.1) mmol/L Chloride 103 (98-107) mmol/L Carbon Dioxide 26.1 (21.0-32.0) mmol/L Anion Gap 9.4 BUN 6.0 L (7.0-18.0) mg/dL Creatinine 0.69 (0.55-1.02) mg/dL Est GFR ( Amer) >60 (>=60 mL/min/1.73m^2) Est GFR (Non-Af Amer) >60 (>=60 mL/min/1.73m^2) BUN/Creatinine Ratio 8.7 Glucose 96 (74-106) mg/dL Calcium 8.9 (8.5-10.1) mg/dL Total Bilirubin 0.3 (0.2-1.0) mg/dL AST 13 L (15-37) U/L ALT 35 (14-59) U/L Alkaline Phosphatase 73 (46-116) U/L Total Protein 7.9 (6.4-8.2) g/dL Albumin 3.5 (3.4-5.0) g/dL Globulin 4.4 g/dL Albumin/Globulin Ratio 0.8 HCG, Quant 91 mIU/mL Blood Type O Positive Antibody Screen Negative Discharge Plan Discharge Chief Complaint: OB/Uterine Contractions Clinical Impression: Vaginal bleeding affecting early , Threatened miscarriage Patient Disposition: Home, Self-Care Time of Disposition Decision: 17:04 Condition: Good Prescriptions / Home Meds: No Action nitrofurantoin monohyd/m-cryst [Macrobid] 100 mg capsule 100 mg PO BID Rx Instructions: must administer with a meal/food Print Language: Kazakh Instructions: Threatened Miscarriage (ED), Subchorionic Hemorrhage (ED) Additional Instructions: Please avoid any exertion until your OB doctor Referrals: Caleb French DO [Physician, PILATES INSTRUCTOR] - 09/20/25 [facility] [Primary Care Provider, Unknown] - 1 week
--- OUTSIDE RECORDS SUMMARY | 2025-09-17 17:18 | XMS_ITS | Encounter Summary ---
Author Organization [employer] [facility] tem Address [facility] [place] [facility] [id number] [address] [place] [address] Care Team Providers Care Ict Help Desk Technician Name Role Phone Services, [facility] Primary Care Provider Encounter Details DateTypeDepartmentCare Team (Latest Contact Info)Xtqnvemtytm62/13/2025Travel Social History Tobacco UseTypesPacks/DayYears UsedDateSmoking Tobacco: Some DaysCigarettes8 Started: 2018Vaping/E-cigarettesPassive Smoke Exposure: YesSmokeless Tobacco: NeverAlcohol UseStandard Drinks/WeekCommentsNo0 (1 standard drink = 0.6 oz pure alcohol)ChildcareAnswerDate QevpikjkJqtzeqakwXwtgxex30/12/2019EmploymentAnswer Date HgltgfizKzejlkuravNatrtmm01/12/2019Hunger ScreeningAnswerDate Recorded Within the past 12 months we worried whether our food would run out before we got money to buy more.Never True09/11/2025Within the past 12 months the food we bought just didn't last and we didn't have money to get more.Never True 09/11/2025Purpose - LifeAnswerDate RecordedPurpose and direction in lifeUnknown 1CommentsYesSex and Gender InformationValueDate RecordedSex Assigned at BirthNot on fileLegal LlvFyuwkj06/06/2015 12:03 PM EDTGender IdentityNot on fileSexual OrientationNot on filedocumented as of this encounter Plan of Treatment Not on file documented as of this encounter Visit Diagnoses Not on filedocumented in this encounter Care Teams Team MemberRelationshipSpecialtyStart DateEnd Date Services, [facility] [address] [place], [place] PCP - GeneralFamily Medicine04/18/25documented as of this encounter
--- OUTSIDE RECORDS SUMMARY | 2025-09-17 17:18 | XMS_ITS | Clinical Summary ---
Author Organization [employer] tem Address [id number] [address] 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 Role Phone Services, [facility] Primary Care Provider Allergies Active AllergyReactionsCriticalityNoted DateCommentsPenicillinsAnaphylaxisHigh 10/16/2017 Medications MedicationSigDispense QuantityRefillsLast FilledStart DateEnd DateStatus polysaccharide iron complex (PRO FE) 180 mg iron capsule Take 1 capsule by mouth 2 (two) times a day.Active sertraline (ZOLOFT) 25 mg tablet Take 1 tablet (25 mg total) by mouth in the morning.Active hydrOXYzine (ATARAX) 50 mg tablet Take 1 tablet (50 mg total) by mouth daily as needed for itching.Active famotidine (PEPCID) 20 mg tablet Take 1 tablet (20 mg total) by mouth in the morning and 1 tablet (20 mg total) before bedtime. 60 tablet 5Active nitrofurantoin, macrocrystal-monohydrate, (MACROBID) 100 mg capsule Take 1 capsule (100 mg total) by mouth in the morning and 1 capsule (100 mg total) before bedtime. Do all this for 7 days. 14 capsule 5Active doxylamine-pyridoxine, vit B6, (DICLEGIS) 10-10 mg tablet,delayed release (DR/EC) Indications:Nausea and vomiting in prior to 22 weeks gestationTwo tablets at bed on days 1 and 2; if worse, take 1 tablet in morning and 2 tablets at bedtime on day 3; if worse, may take 1 tablet in morning, 1 tablet mid- afternoon, and 2 tablets at bedtime on day 4. 11 tablet 09/11/2025tive dicyclomine (BENTYL) 20 mg tablet Take 1 tablet (20 mg total) by mouth as needed in the morning and 1 tablet (20 mg total) as needed in the evening (abdominal cramping). Do all this for up to 20 doses. 20 tablet Discontinued() ondansetron ODT (ZOFRAN ODT) 4 mg disintegrating tablet Dissolve 1 tablet (4 mg total) on tongue every 8 (eight) hours as needed for nausea for up to 10 doses. 10 tablet Discontinued() metoclopramide (REGLAN) 10 mg tablet Indications:Nausea and vomiting in prior to 22 weeks gestationTake 1 tablet (10 mg total) by mouth every 6 (six) hours as needed (vomiting) for up to 3 days. 12 tablet Expired Active Problems CommentsYes No known active problems Encounters DateTypeDepartmentCare UonxUysfhyvzatg98/15/2025Results Follow-Up [facility] - Emergency [address] [place] [id number] Fabienne Johnson RN Urine Culture Urine, Clean Catch Jmnflcfdx40/13/2025 4:01 PM EST - 09/11/2025 4:59 PM ESTEmergency [facility] - Emergency [address] [place] [address] Uriel Nesbitt, DO Nausea and vomiting in prior to 22 weeks gestation (Primary Dx) Discharge Disposition: Home09/11/2025 10:03 AM EST - 09/11/2025 11:52 AM EST Emergency [facility] - Emergency [address] [place] [id number] Karthikeyan Johnson MD Urinary tract infection without hematuria, site unspecified (Primary Dx); Epigastric pain; , unspecified gestational age Discharge Disposition: Home09/11/2025Travelfrom Last 3 Months Family History Medical HistoryRelationNameCommentsAsthmaBrotherAutismBrotherAsthmaFatherAutism FatherDiabetesMaternal GrandfatherDiabetesMaternal UncleAnemiaMotherArrhythmia MotherMigrainesMotherStrokePaternal GrandmotherClotting disorderNeg HxHeart attackNeg HxHeart defectNeg HxHigh CholesterolNeg HxHypertensionNeg HxSeizures Neg HxSudden deathNeg HxThyroid IssuesNeg HxRelationNameStatusCommentsBrother FatherMaternal GrandfatherMaternal UncleMotherPaternal Grandmother Social History Tobacco UseTypesPacks/DayYears UsedDateSmoking Tobacco: Some DaysCigarettes8 Started: 2018Vaping/E-cigarettesPassive Smoke Exposure: YesSmokeless Tobacco: Never Tobacco Cessation:Ready to Q uit: Not Asked; Counseling Given: Not Answered Alcohol UseStandard Drinks/WeekCommentsNo0 (1 standard drink = 0.6 oz pure alcohol)ChildcareAnswerDate DuvmlophIqmuivfutIdhgsfc22/12/2019EmploymentAnswer Date MvuutaorGnmtegrgwfDxxxinv19/12/2019Hunger ScreeningAnswerDate Recorded Within the past 12 months we worried whether our food would run out before we got money to buy more.Never True09/11/2025Within the past 12 months the food we bought just didn't last and we didn't have money to get more.Never True 09/11/2025Purpose - LifeAnswerDate RecordedPurpose and direction in lifeUnknown 1CommentsYesSex and Gender InformationValueDate RecordedSex Assigned at BirthNot on fileLegal OzlQpoyby39/06/2015 12:03 PM EDTGender IdentityNot on fileSexual OrientationNot on file Last Filed Vital Signs Vital SignReadingTime TakenCommentsBlood Iwlzcxbq698/8109/11/2025 4:53 PM EST Uibgv443309/11/2025 4:53 PM QBORnucqbjumeq69.5 ??C (97.7 ??F)09/11/2025 10:06 AM ESTRespiratory Ndrk830711/12/2024 4:53 PM ESTOxygen Aqeqygoqso03%09/11/2025 4:53 PM ESTInhaled Oxygen Concentration--Crgbvs820.2 kg (232 lb)09/11/2025 4:07 PM GKXYfajef269.6 cm (5' 6 )09/11/2025 4:07 PM ESTBody Mass Index37.45111/12/2024 4:07 PM EST Plan of Treatment Health MaintenanceDue DateLast DoneCommentsTobacco Fkdtynookp00/01/2000 Depression Ansrqcntz26/01/2012dult BMI Follow Up Plan2017Pap Smear 2020TaP,Tdap and Td Vaccines (7 - Td or Tdap)/08/2011, 06/13/2005, 06/13/2005, Additional history existsInfluenza Isxyvzm0705/31/2025 08/19/2003Adult BMI Bsvkiekla21Tobacco Eecjpeoxx09/13/2026 09/11/2025RSV ( or age 60+ yrs) (1 - 1-dose 75+ series)2074 Medical Devices Not on file Procedures Procedure NamePriorityDate/TimeAssociated DiagnosisCommentsURINE CULTURESTAT 09/11/2025 10:27 AM EST POCT , URINE (NUCG)Gcifpkl9409/11/2025 10:25 AM EST POCT NURSING URINE MACROSCOPIC MVBrmnbxr99/13/2025 10:22 AM EST HCG-BETA, SERUMSTAT Add-on09/11/2025 10:18 AM EST OEFNSAZECA81/13/2025 10:18 AM EST COMPREHENSIVE METABOLIC CVYSVFSES60/13/2025 10:18 AM EST CBC WITH AUTO GPXEXEIBBVSJXXMZ22/13/2025 10:18 AM EST EXTRA TUBES BLUE LVLGqscnrw15/13/2025 10:17 AM EST EXTRA WDOCVDclpxyf58/13/2025 10:17 AM EST from Last 3 Months Results * Urine Culture Urine, Clean Catch Midstream (09/11/2025 10:27 AM EST)Component ValueRef RangeTest MethodAnalysis TimePerformed AtPathologist SignatureCULTURE CJKEGEM13-75,000 ORGANISMS/mL NORMAL UROGENITAL FLORA09/12/2025 1:04 PM EST [facility]YSpecimen (Source)Anatomical Location / LateralityCollection Method / VolumeCollection TimeReceived TimeUrineUrine specimen collection, clean catch / Oaudwpr8409/11/2025 10:27 AM EST09/11/2025 10:41 AM EST Narrative Authorizing ProviderResult TypeResult StatusKarthikeyan Johnson MDMICROBIOLOGY - GENERAL ORDERABLESFinal ResultPerforming OrganizationAddressCity/State/ZIP Code Phone Number [facility] [address] [place] [address], [place] [phone] * (ABNORMAL) POCT , urine (09/11/2025 10:25 AM EST)ComponentValueRef RangeTest MethodAnalysis TimePerformed AtPathologist SignaturePOC Urine PregnancyPositive(A)Negative, Uhtyojiuwwsqb04/13/2025 10:30 AM [facility] (Source)Anatomical Location / Laterality Collection Method / VolumeCollection TimeReceived DhivMymdw48/13/2025 10:25 AM EST09/11/2025 10:30 AM EST Narrative Authorizing ProviderResult TypeResult Keli Johnson MDPOINT OF CARE TEST ORDERABLESFinal ResultPerforming OrganizationAddressCity/State/ZIP CodePhone Number [facility] [address] [facility] [place] [address], [place] * (ABNORMAL) POCT Nursing Urine Macroscopic UA (09/11/2025 10:22 AM EST) ComponentValueRef RangeTest MethodAnalysis TimePerformed AtPathologist SignaturePOC Urine Specific Gravity1.0251.010, 1.015, 1.020, 1.97764/ 10:23 AM [facility]OH[facility] Urine Leukocyte Esterase Small(A)Jgcbrpck42/13/2025 10:23 AM ESTPROCORCORAN [facility]ITAL Urine LcxsidnOvabycfuByuhxqln15/13/2025 10:23 AM ESTPROCORCOR[facility] Urine pH6.05.0, 6.0, 6.5, 7.0, 7.5, 8.0, 8.5, 5. 10:23 AM ESTPROCORCORAN DISTRICT [facility]ITAL Urine Mzhaqqq85 mg/dL(A)Negative 09/11/2025 10:23 AM ESTPROCORCOR[facility] Urine Glucose KthhpqxjAhtahwxu04/13/2025 10:23 AM [facility] Urine LpfbdpuXptpyoauKkftuzkd04/13/2025 10:23 AM [facility]OH[facility] Urine Urobilinogen0.2 E.U./dL09/11/2025 10:23 AM ESTPROCORCORAN DISTRICT [facility]OSPITAL Urine QixewjqoyGocslaxlDiejvtzw58/13/2025 10:23 AM [facility]OH[facility] Urine Blood/HGBLarge(A)Negative 09/11/2025 10:23 AM [facility]ITALpecimen (Source) Anatomical Location / LateralityCollection Method / VolumeCollection Time Received VvymBsqfq70/13/2025 10:22 AM EST09/11/2025 10:23 AM EST Narrative Authorizing ProviderResult TypeResult StatusKarthikeyan Johnson MDPOINT OF CARE TEST ORDERABLESFinal ResultPerforming OrganizationAddressCity/State/ZIP CodePhone Number [facility] [address] [place] [address], * (ABNORMAL) CBC auto differential (09/11/2025 10:18 AM EST)ComponentValueRef RangeTest MethodAnalysis TimePerformed AtPathologist WufanddqoQSD21.7(H)4 - 11 10^L111/12/2024 10:30 AM ESTSELECT [facility] Count4.69 3.8 - 5.2 10^12L111/12/2024 10:30 AM [facility] Aklsauaphf53.311.7 - 15.5 g/dL09/11/2025 10:30 AM [facility]ITALHematocrit39.135 - 47 %09/11/2025 10:30 AM [facility]ITALMCV8380 - 100 fL09/11/2025 10:30 AM [facility]ITALMCH28.427 - 34 pg09/11/2025 10:30 AM [facility]ITALMCHC34.032 - 36 g/dL09/11/2025 10:30 AM [facility]PITALRDW12.911.5 - 15 %09/11/2025 10:30 AM [facility]OSPITALPlatelet Xksnq353770 - 450 10^09/11/2025 10:30 AM [facility]ITALMPV7.97 - 12 fL09/11/2025 10:30 AM EST [facility] HOSPITALNeutrophils %61.2%09/11/2025 10:30 AM EST [facility]ENTERLymphocytes %31.3%09/11/2025 10:30 AM EST [facility] HOSPITALMonocytes %6.0%09/11/2025 10:30 AM EST [facility] HOSPITALEosinophils %1.0%09/11/2025 10:30 AM EST [facility]ENTERBasophils %0.5%09/11/2025 10:30 AM EST [facility] CENTERNeutrophils Absolute (A)7.2(H)1.5 - 6.6 10^09/11/2025 10:30 AM ESTPROMOUNT ZION CAMPUSLymphocytes Absolute3.7(H)1.0 - 3.5 10^09/11/2025 10:[address] [facility] MED[facility] CENTERMonocytes Absolute0.70.0 - 0.9 10^9/L12/ 10:30 AM [address] [facility] CENTEREosinophils Absolute0.10.0 - 0.4 10^9/L 09/11/2025 10:[address] [facility] MEDICAL CENTERBasophils Absolute 0.10.0 - 0.2 10^9/L111/12/2024 10:30 AM [facility] Differential TypeAUTOMATED FVKTLSRFUXBZ09/13/2025 10:30 AM [facility]ITALpecsouth [facility] (Source)Anatomical Location / Laterality Collection Method / VolumeCollection TimeReceived TimeBloodVenous blood / UnknownVenipuncture / Bjgizwp5009/11/2025 10:18 AM EST09/11/2025 10:19 AM EST Narrative Authorizing ProviderResult TypeResult StatusKarthikeyan Johnson MDLAB BLOOD ORDERABLES Final ResultPerforming OrganizationAddressCity/State/ZIP CodePhone Number [facility] [address] [place] [address], * HCG, Quantitative, (09/11/2025 10:18 AM EST)ComponentValueRef Range Test MethodAnalysis TimePerformed AtPathologist SignatureSERUM B HCG,3RD I.S. 60mIU/mL09/11/2025 11:29 AM [facility]ITALpec[facility] (Source)Anatomical Location / LateralityCollection Method / VolumeCollection TimeReceived TimeBloodVenous blood / UnknownVenipuncture / Tnpsyxj3109/11/2025 10:18 AM EST09/11/2025 10:19 AM EST Narrative [facility] - 09/11/2025 11:29 AM EST [...] or nontrophoblastic neoplasms. Authorizing ProviderResult TypeResult StatusKarthikeyan HALLMAN BLOOD ORDERABLES Final ResultPerforming OrganizationAddressty/[facility]/ZIP CodePhone Number [address] [address], * Lipase (09/11/2025 10:18 AM EST)ComponentValueRef RangeTest MethodAnalysis TimePerformed AtPathologist WazeaqthfUMUEYN3603 - 40 U/L111/12/2024 10:38 AM [facility]ITALpecimen (Source)Anatomical Location / LateralityCollection Method / VolumeCollection TimeReceived TimeBloodVenous blood / UnknownVenipuncture / Xstbfwm6309/11/2025 10:18 AM EST09/11/2025 10:19 AM EST Narrative Authorizing ProviderResult TypeResult StatusKarthikeyan HALLMAN BLOOD ORDERABLES Final ResultPerforming [facility] CenterAddW[facility] CodePhone Number [address] [address], * (ABNORMAL) Comprehensive metabolic panel (09/11/2025 10:18 AM EST)Component ValueRef RangeTest MethodAnalysis TimePerformed AtPathologist SignatureSODIUM 439901 - 146 mmol/L12/ 10:41 AM [facility] POTASSIUM3.63.5 - 5.0 mmol/L111/12/2024 10:41 AM [facility]OSPITALCHLORIDE10598 - 109 mmol/L111/12/2024 10:41 AM [facility]OSPITALCARBON QOJXZJT4402 - 32 mmol/L111/12/2024 10:41 AM EST [facility]ENTERANION GAP75 - 15 mmol/L111/12/2024 10:41 AM [facility]OSPITALBLOOD UREA GTAFRUXW715 - 23 mg/dL 09/11/2025 10:41 AM [facility]PITALCREATININE0.780.40 - 1.00 mg/dL09/11/2025 10:41 AM [facility]PITALComment: METHOD TRACEABLE TO IDMS XHHIHDROEWCAFNG329(H)65 - 99 mg/dL09/11/2025 10:41 AM [facility]OSPITALCALCIUM8.98.5 - 10.5 mg/dL09/11/2025 10:41 AM [facility]OSPITALTOTAL PROTEIN7.96.0 - 8.0 g/dL 09/11/2025 10:41 AM [facility]OSPITALALBUMIN4.13.2 - 5.3 g/dL09/11/2025 10:41 AM [facility]OSPITALALKALINE XGITBYKWHWN7920 - 130 U/L111/12/2024 10:41 AM [facility]ITALAST16<=41 U/L111/12/2024 10:41 AM [facility]ITALALT17<=31 U/L111/12/2024 10:41 AM [facility]OSPITALBILIRUBIN,TOTAL0.50.3 - 1.2 mg/dL09/11/2025 10:41 AM [facility] HOSPITALEGFR Non-Race Dependent>90>=60 ml/min/1.73sq.m 09/11/2025 10:41 AM [facility]OSPITALComment: eGFR not reported due to non-numeric value for Creatinine. Reported eGFR is based on the CKD-EPI 2020 equation that does not use a race coefficient. Specimen (Source)Anatomical Location / LateralityCollection Method / Volume Collection TimeReceived TimeBloodVenous blood / UnknownVenipuncture / Unknown 09/11/2025 10:18 AM EST09/11/2025 10:19 AM EST Narrative Authorizing ProviderResult TypeResult StatusKarthikeyan HALLMAN BLOOD ORDERABLES Final ResultPerforming OrganizationAddressCity/State/ZIP CodePhone Number [address] [address], [place] * Light Blue Top (09/11/2025 10:17 AM EST)ComponentValueRef RangeTest Method Analysis TimePerformed AtPathologist SignatureExtra TubeAuto Resulted 09/11/2025 12:01 PM ESTPROMEDICA LOS ANGELES COMMUNITY HOSPITALpecimen (Source) Anatomical Location / LateralityCollection Method / VolumeCollection Time Received TimeBloodVenous blood / Gnjpwuc7309/11/2025 10:17 AM EST09/11/2025 10:23 AM EST Narrative Authorizing ProviderResult TypeResult StatusKarthikeyan HALLMAN BLOOD ORDERABLES Final ResultPerforming OrganizationAddressCity/State/ZIP CodePhone Number [address] [place] [address], from Last 3 Months Care Teams Team MemberRelationshipSpecialtyStart DateEnd Date Services, [facility] [address], [place] PCP - GeneralFamily Medicine04/18/25
--- OUTSIDE RECORDS SUMMARY | 2025-09-17 17:18 | XMS_ITS | Encounter Summary ---
Author Organization [facility] tem Address [id number] [address] 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 Name Role Phone Services, [facility] Primary Care Provider Encounter Details DateTypeDepartmentCare Team (Latest Contact Info)Fyeydzunuie56/15/2025Results Follow-Up [facility] - Emergency [address] [place] [phone] Fabienne Johnson, SINAN Urine Culture Urine, Clean Catch Midstream Social History Tobacco UseTypesPacks/DayYears UsedDateSmoking Tobacco: Some DaysCigarettes8 Started: 2018Vaping/E-cigarettesPassive Smoke Exposure: YesSmokeless Tobacco: NeverAlcohol UseStandard Drinks/WeekCommentsNo0 (1 standard drink = 0.6 oz pure alcohol)ChildcareAnswerDate YdvpgitkNpmpscgldUriaiwf56/12/2019EmploymentAnswer Date KslklcurGrwrmbjtvtUliivxw83/12/2019Hunger ScreeningAnswerDate Recorded Within the past 12 months we worried whether our food would run out before we got money to buy more.Never True09/11/2025Within the past 12 months the food we bought just didn't last and we didn't have money to get more.Never True 09/11/2025Purpose - LifeAnswerDate RecordedPurpose and direction in lifeUnknown 1CommentsYesSex and Gender InformationValueDate RecordedSex Assigned at BirthNot on fileLegal MgcBjaiyh66/06/2015 12:03 PM EDTGender IdentityNot on fileSexual OrientationNot on filedocumented as of this encounter Plan of Treatment Not on file documented as of this encounter Visit Diagnoses Not on filedocumented in this encounter Care Teams Team MemberRelationshipSpecialtyStart DateEnd Date Services, [facility] [address] [place], [place] PCP - GeneralFamily Medicine04/18/25documented as of this encounter
--- OUTSIDE RECORDS SUMMARY | 2025-09-17 17:18 | XMS_ITS | Patient Health Record ---
Author Organization [facility] vices Address [address] [place], [place] [id number] Care Team Providers Care Signal Worker Name Role Phone Windy López Primary Care Provider Allergies Allergen (clinical drug ingredient) Drug/Non Drug Allergy documented on EMR Reaction Allergy Type Onset Date Status [place] FlavorRashDrug AllergyActiveCitrusAbdominal painAllergyActiveSubstance with penicillin structure and antibacterial mechanism of action (substance) PenicillinsEdema , HivesDrug AllergyActive Reason For Referral No Information Medications Medication SIG (Take, Route, Frequency, Duration) Notes Start Date End Date Status Omeprazole 20 MG Capsule Delayed Release 1 capsule 30 minutes before morning meal Orally Once a day; Duration: 90 days 10/01/2023ctivehydrOXYzine Pamoate 25 MG Capsule1 capsule as needed Orally Twice a day; Duration: 30 daysPRNActiveEscitalopram Oxalate 5 MG Tablet1 tablet Orally Once a day; Duration: 30 days10/08/2023ctivetiZANidine HCl 2 MG Tablet1 tablet as needed Orally Three times a day; Duration: 14 days11/01/2023ctive Naproxen 500 MG Tablet1 tablet with food or milk as needed Orally every 12 hrs; Duration: 30 11/01/2023ctiveCetirizine HCl 10 MG Tablet1 tablet Orally Once a day; Duration: 30 days11/06/2023ctiveFluticasone Propionate 50 MCG/ACT Suspension1 spray in each nostril Nasally Twice a day; Duration: 30 days 11/06/2023ctiveCholecalciferol 25 MCG (1000 UT) Capsule1 capsule Orally Once a day; Duration: 30 days12/17/2023ctiveLevothyroxine Sodium 25 MCG Tablet1 tablet in the morning on an empty stomach Orally Once a day; Duration: 30 days 12/17/2023ctive Immunizations Vaccine Route Administration Date Status Comme nts *DTaP (Infanrix)-VFC OTH Other/Miscellaneous 01/01/2000 Administered Status:Complete ,Reason:Given or N/A , melissah (02/21/2006) 20 minute check done no reaction *DTaP (Infanrix)-VFC OTH Other/Miscellaneous 03/05/2000 Administered Status:Complete ,Reason:Given or N/A , melissah (02/21/2006) 20 minute check done no reaction Sequence #2 *DTaP (Infanrix)-VFC OTH Other/Miscellaneous 05/06/2000 Administered Status:Complete ,Reason:Given or N/A , melissah (02/21/2006) 20 minute check done no reaction Sequence #3 *DTaP (Infanrix)-VFC OTH Other/Miscellaneous 06/06/2001 Administered Status:Complete ,Reason:Given or N/A , melissah (02/21/2006) 20 minute check done no reaction Sequence #4 *DTaP (Infanrix)-VFC OTH Other/Miscellaneous 06/13/2005 Administered Status:Complete ,Reason:Given or N/A , melissah (02/21/2006) 20 minute check done no reaction Sequence #5 *Hep A, ped/adol, 2 dose-VFC IM Intramuscular 02/08/2011 Administered Status:Complete ,Reason:Given or N/A *Hep A, ped/adol, 2 dose-VFC IM Intramuscular 05/17/2016 Administered Status:Complete ,Reason:Given or N/A *Hep B, adult dosage-Private OTH Other/Miscellaneous 01/22/2000 Administered Status:Complete ,Reason:Given or N/A , melissah (02/21/2006) 20 minute check done no reaction *Hep B, adult dosage-Private OTH Other/Miscellaneous 03/05/2000 Administered Status:Complete ,Reason:Given or N/A , melissah (02/21/2006) 20 minute check done no reaction Sequence #2 *Hep B, adult dosage-Private OTH Other/Miscellaneous 11/06/2000 Administered Status:Complete ,Reason:Given or N/A , melissah (02/21/2006) 20 minute check done no reaction Sequence #3 *MMR-VFC OTH Other/Miscellaneous 06/06/2001 Administered Status:Complete ,Reason:Given or N/A , melissah (02/21/2006) 20 minute check done no reaction *MMR-VFC OTH Other/Miscellaneous 06/13/2005 Administered Status:Complete ,Reason:Given or N/A , melissah (02/21/2006) 20 minute check done no reaction Sequence #2 *Tdap (Adacel)-VFC IM Intramuscular 02/08/2011 Administere d Status:Complete ,Reason:Given or N/A *Varicella (Varivax)-VFC OTH Other/Miscellaneous 11/06/2000 Administered Status:Complete ,Reason:Given or N/A , melissah (02/21/2006) 20 minute check done no reaction DTaP-Hep B-IPV OTH Other/Miscellaneous 01/01/2000 Administered Status:Complete ,Reason:Given or N/A , melissah (02/21/2006) 20 minute check done no reaction DTaP-Hep B-IPV OTH Other/Miscellaneous 03/05/2000 Administered Status:Complete ,Reason:Given or N/A , melissah (02/21/2006) 20 minute check done no reaction Sequence #2 DTaP-Hep B-IPV OTH Other/Miscellaneous 06/06/2001 Administered Status:Complete ,Reason:Given or N/A , melissah (02/21/2006) 20 minute check done no reaction Sequence #3 DTaP-Hep B-IPV OTH Other/Miscellaneous 06/13/2005 Administered Status:Complete ,Reason:Given or N/A , melissah (02/21/2006) 20 minute check done no reaction Sequence #4 Hib (HbOC), 4 dose schedule OTH Other/Miscellaneous 01/01/2000 Administered Status:Complete ,Reason:Given or N/A , melissah (02/21/2006) 20 minute check done no reaction Hib (HbOC), 4 dose schedule OTH Other/Miscellaneous 03/05/2000 Administered Status:Complete ,Reason:Given or N/A , melissah (02/21/2006) 20 minute check done no reaction Sequence #2 Hib (HbOC), 4 dose schedule OTH Other/Miscellaneous 11/06/2000 Administered Status:Complete ,Reason:Given or N/A , melissah (02/21/2006) 20 minute check done no reaction Sequence #3 Hib (HbOC), 4 dose schedule OTH Other/Miscellaneous 05/06/2001 Administered Status:Complete ,Reason:Given or N/A , melissah (02/21/2006) 20 minute check done no reaction Sequence #4 HPV (human papillomavirus), quadrivalent, 3 dose schedule IM Intramuscular 03/12/2011 Administered Status:Complete ,Reason:Given or N/A HPV (human papillomavirus), quadrivalent, 3 dose schedule IM Intramuscular 05/15/2011 Administered Status:Complete ,Reason:Given or N/A ,Parents instructed to make [place] appt for HPV #3 on or after 09/11/11. Voiced understanding. HPV (human papillomavirus), quadrivalent, 3 dose schedule IM Intramuscular 09/17/2011 Administered Status:Complete ,Reason:Given or N/A Meningococcal FZO3O-OTU IM Intramuscular 05/17/2016 Administered Status:Complete ,Reason:Given or N/A Meningococcal MCV4P IM Intramuscular 02/08/2011 Administer ed Status:Complete ,Reason:Given or N/A Pneumococcal conjugate PCV 7 OTH Other/Miscellaneous 08/19/2003 Administered Status:Complete ,Reason:Given or N/A , melissah (02/21/2006) 20 minute check done no reaction Social History Tobacco Use: Social History Observation Description Date Details (start date - stop date) Current Smoker 2017 - NA Sex Assigned At : Social History Observation Description Sex Assigned At Female Social History Social DeterminantsSocial InfoQuestionAnswerNotesPRAPAREDate Completed/Updated: 1999patient entered dataWhat is your current housing situation?I have housingpatient entered dataAre you worried about losing your housing?No patient entered dataWhat is the highest level of school that you have finished?High school diploma or GEDpatient entered dataWhat is your current work situation?Otherwise unemployed but not seeking work (ex. 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 Check all that applyI do not have problems meeting my needsHas lack of transportation kept you from medical appointments, meetings, work or from getting things needed for daily living?NoHow often do you see or talk to people that you care about and feel close to? (For example: talkingto friends on the phone, visiting friends or family, going to uatsdin or club meetings)3 to 5 times a weekpatient entered dataHow stressed are you? Stress is when someone feels tense, nervous, anxious, or can't sleep at night because their mind is troubledSomewhatpatient entered dataIn the past year have you spent more than 2 nights in a row in a long-term, residential, snf center, orjuvenile correctional facility?Nopatient entered dataAre you a refugee?No patient entered dataWhat country are you from?[place]patient entered dataDo you feel physically and emotionally safe where you currently live?Yes patient entered dataIn the past year, have you been afraid of your partner or ex-partner?Nopatient entered dataPRAPARE Score:4PCMH and UDS Demographics Social InfoQuestionAnswerNotesPriRipley [facility] QuestionsDo you have any barriers to learning?Nonepatient entered dataWhat is your preferred method of learning?Doing or practicingpatient entered dataHow often do you need to have someone help you read instructions?Neverpatient entered dataHousehold:Social InfoQuestionAnswerNotesHouseholdNumber of adults in household:2Number of children in household:1Drugs/Alcohol/Caffeine:Social InfoQuestionAnswerNotes DrugsHave you used drugs other than those for medical reasons in the past 12 months?NoCAGE-AID Questionnaire (2018 Edition)Have you ever felt that you ought to cut down on your drinking or drug use?Nopatient entered dataHave people annoyed you by criticizing your drinking or drug use?Nopatient entered data Have you ever felt bad or guilty about your drinking or drug use?Nopatient entered dataHave you ever had a drink or used drugs first thing in the morning to steady your nerves or to get rid of a hangover?Nopatient entered dataCAGE- AID Kiopf7PoupirbqrcjprrYuwwpszlPotspqvdGdsrhu:3-4 cups per dayTobacco Use: Social InfoQuestionAnswerNotesTobacco Use/SmokingTobacco use:current smoker patient entered data? When did you start smoking?2017patient entered data? How often do you smoke cigarettes?every daypatient entered data? How many cigarettes a day do you smoke?5 or lesspatient entered data? How soon after you wake up do you smoke your first cigarette?within 5 minutespatient entered data? Are you interested in quitting?Thinking about quittingpatient entered data? When did you start smoking?09/30/2017Additional Findings: Tobacco UserLight cigarette smoker ((1-9 cigs/day)Additional DetailsCategorySocial Info OptionsDetailsMiscellaneous:Occupation:unemployedCulture/Language BarrierNo Education LevelGrade 7-12Barriers to LearningNoneLearning PreferenceDoing or practicingHow often do you need to have someone help you read instructionsNever SafetyPatient feels safe in relationshipsYesDrugs/Alcohol/Caffeine:Do you drink alcohol?No Problems Problem Type SNOMED Code ICD Code Onset Dates Problem Status W/U Status Risk Notes Problem Seasonal allergy (780164498) Seasonal all ergies (J30.2) ActiveconfirmedProblemAnxiety (72508830)Anxiety (F41.9)ActiveconfirmedProblem Hypothyroidism (21612664)Hypothyroidism (E03.9)ActiveconfirmedProblemVitamin D deficiency (66276918)Vitamin D deficiency (E55.9)ActiveconfirmedProblem Gastroesophageal reflux disease without esophagitis (540402893)Gastroesophageal reflux disease without esophagitis (K21.9)ActiveconfirmedProblemAllergic rhinitis (79785322)Allergic rhinitis, unspecified seasonality, unspecified trigger (J30.9)Activeconfirmed Plan Of Treatment No Information Insurance Providers Payer Name Payer Address Payer Phone Subscriber Number Group Number Insured Name Patient Relationship to Insured Coverage Start Date Coverage End Date [facility] [address] [place] [address] [id number] [employer] Miladys Fernandez Self - patient is the insured 1 Medicaid CFC after [facility] [address] [place], [place] [id number], ShyannSelf - patient is the [id number] 2021 Medical (General) History Medical History History ICD Code Epilepsy G40.909 Pityriasis rosea L42 Mild intermittent asthma, unspecified wh ether complicated J45.20 Gastroesophageal reflux disease, unspeci fied whether esophagitis present K21.9 Anxiety F41.9 Surgical History Surgery Date(Month/Year) Bilateral Tubes - removed
[2025-09-17 17:24] VITALS: BP 123/79; PULSE 83; TEMP 36.8; O2SAT 99
== END 2025-09-17 17:26 | disposition home or self-care (01) ==
PROVIDERS: Emergency Provider Emergency Medicine
DX: O20.0 Threatened abortion (principal); Z3A.01 Less than 8 weeks gestation of pregnancy; O26.851 Spotting complicating pregnancy, first trimester
CPT/HCPCS: 36415; 80053; 84702; 85025; 86850; 86900; 86901; 99283

== ENCOUNTER 2025-09-19 15:04 | Emergency (ER) | payer SELFPAY ==
--- OUTSIDE RECORDS SUMMARY | 2025-09-11 10:03 | XMS_ITS | Encounter Summary ---
Author Organization [facility] tem Address [facility] [place], [id number] [address] [place] [address] Care Team Providers Care Commercial Lending Assistant Name Role Phone Services, [facility] Primary Care Provider Reason for Visit * ReasonCommentsAbdominal Pain Encounter Details DateTypeDepartmentCare Team (Latest Contact Info)Udcwaurgtzs67/13/2025 10:03 AM EST - 09/11/2025 11:52 AM [facility] - Emergency [address] [place] [phone] Karthikeyan Johnson MD [address] [place] [address] Urinary tract infection without hematuria, site unspecified (Primary Dx); Epigastric pain; , unspecified gestational age Discharge Disposition: Home Social History Tobacco UseTypesPacks/DayYears UsedDateSmoking Tobacco: Some DaysCigarettes8 Started: 2018Vaping/E-cigarettesPassive Smoke Exposure: YesSmokeless Tobacco: NeverAlcohol UseStandard Drinks/WeekCommentsNo0 (1 standard drink = 0.6 oz pure alcohol)ChildcareAnswerDate KsmiquypUapmylanhOfvtuwf89/12/2019EmploymentAnswer Date DdwzfrgeRehkoqpzvjJmjnmxn02/12/2019Hunger ScreeningAnswerDate Recorded Within the past 12 months we worried whether our food would run out before we got money to buy more.Never True09/11/2025Within the past 12 months the food we bought just didn't last and we didn't have money to get more.Never True 09/11/2025Purpose - LifeAnswerDate RecordedPurpose and direction in lifeUnknown 1CommentsYesSex and Gender InformationValueDate RecordedSex Assigned at BirthNot on fileLegal NbtLlraat70/06/2015 12:03 PM EDTGender IdentityNot on fileSexual OrientationNot on filedocumented as of this encounter Last Filed Vital Signs Vital SignReadingTime TakenCommentsBlood Qmbvkcjp615/9409/11/2025 11:50 AM EST Pvjys40640/13/2025 11:50 AM FUJSalocscuyaw39.5 ??C (97.7 ??F)09/11/2025 10:06 AM ESTRespiratory Tjod499811/12/2024 11:50 AM ESTOxygen Uqjizuadcd152%09/11/2025 11:50 AM ESTInhaled Oxygen Concentration--Mwalle694.2 kg (232 lb)09/11/2025 10:06 AM JVWQsinks158.6 cm (5' 6 )09/11/2025 10:06 AM ESTBody Mass Index37.45 09/11/2025 10:06 AM ESTdocumented in this encounter Functional Status * BEE (kcal)AnswerDate of LmwotkdhprBmusul617411/13/2025 10:06 AM Lindsay Henson RN * Pain AssessmentQuestionAnswerDate of AssessmentAuthorPain Assessment0-10 09/11/2025 10:06 AM Lindsay Henson RNPain Zzagx76411/12/2024 10:06 AM EST Lindsay Brambila RN * Indigo Coma ScaleQuestionAnswerDate of AssessmentAuthorEye Ryhjgek815/13/2025 10:38 AM Lindsay Henson RNBest Motor Tobtitjo885/13/2025 10:38 AM Lindsay Oliver RNBest Verbal Bbegtvqv605/13/2025 10:38 AM Lindsay Henson RNGlasgow Coma Scale Fgzwg8081/13/2025 10:38 AM Lindsay Henson RN * Vital SignsQuestionAnswerDate of TyydvwcgntGchqtlVE495/9409/11/2025 11:50 AM Lindsay Henson EJIjlnd07001/13/2025 11:50 AM Lindsay Henson RNResp16 09/11/2025 11:50 AM Lindsay Henson OOMoI262710/13/2025 11:50 AM Lindsay Henson RN * Patient ObservationQuestionAnswerDate of FdojdvohwxPfuxrjPutkty7526/13/2025 10:06 AM Lindsay Henson RNWeight3712111/12/2024 10:06 AM Lindsay Henson RN * BSA (Calculated - sq m)AnswerDate of AssessmentAuthor2.21111/12/2024 10:06 AM Lindsay Henson RN * BMI (Calculated)AnswerDate of QeawwchbmqBdcmbd62. 10:06 AM Lindsay Oliver RN * Height and WeightQuestionAnswerDate of AssessmentValley [facility] MethodStated 09/11/2025 10:06 AM Lindsay Henson RN * Abuse Indicator ScreeningQuestionAnswerDate of AssessmentAuthorSafe in HomeYes 09/11/2025 10:09 AM Lindsay Henson RNDo you feel safe in your relationship(s)?Yes09/11/2025 10:09 AM Lindsay Henson RNAre you in immediate danger?No09/11/2025 10:09 AM Lindsay Henson RN * Harm Risk AssessmentQuestionAnswerDate of AssessmentAuthorAre you having thoughts of homicide or causing harm to others?No09/11/2025 10:07 AM Lindsay Henson RN * Blood HistoryQuestionAnswerDate of AssessmentAuthorHave you had a blood transfusion?No09/11/2025 10:09 AM Lindsay Henson RNWould you accept a blood transfusion in a life-threatening situation?Yes09/11/2025 10:09 AM Lindsay Oliver RN * Fall Prevention Screening 18-64 yearsQuestionAnswerDate of AssessmentAuthorIs Patient Alert, Oriented and Able to Follow BagedgmnFik91/13/2025 10:09 AM Lindsay Oliver RNFall Prevention ScreenDoes Not Apply to Patient - Screening Bsdunsyn95/13/2025 10:09 AM Lindsay Henson RN * Vital SignsQuestionAnswerDate of BvypbqvvzyZgehauGjro54.7111/12/2024 10:06 AM Lindsay Henson RN * NeurologicalQuestionAnswerDate of AssessmentAuthorNeuro (WDL)WDL111/12/2024 10:38 AM Lindsay Henson RN * Adult Sepsis RiskQuestionAnswerDate of AssessmentAuthorSIRS Criteria1 09/11/2025 11:40 AM Lucy, ClindocRisk of Sepsis v.20. 11:41 AM Lucy, Clindoc * AirwayQuestionAnswerDate of AssessmentAuthorAirway (WDL)WDL111/12/2024 10:08 AM Lindsay Henson RN * BreathingQuestionAnswerDate of AssessmentAuthorBreathing (WDL)WDL111/12/2024 10:08 AM Lindsay Henson RN * CirculationQuestionAnswerDate of AssessmentAuthorCirculation (WDL)WDL 09/11/2025 10:08 AM Lindsay Henson RN * DisabilityQuestionAnswerDate of AssessmentAuthorDisability (WDL)WDL111/12/2024 10:08 AM Lindsay Henson RN * Weight in (lb) to have BMI = 25AnswerDate of KntzpldrbeHiownu261.6111/12/2024 10:06 AM Lindsay Henson RN * [place] Suicide BehaviorQuestionAnswerDate of AssessmentAuthor6. Have you ever done anything, started to do anything, or prepared to do anything to end your life?No09/11/2025 10:07 AM Lindsay Henson RN * Suicidal Ideation (Last Month)QuestionAnswerDate of AssessmentAuthor1. In the last month have you wished you were or wished you could go to sleep and not wake up?No09/11/2025 10:07 AM Lindsay Henson RN2. In the last month have you actually had any thoughts of killing yourself?No09/11/2025 10:07 AM Lindsay Henson RNAble to assess?Yes09/11/2025 10:07 AM Lindsay Henson RN * AbdominalQuestionAnswerDate of AssessmentAuthorGastrointestinal (WDL)X 09/11/2025 10:37 AM Lindsay Henson RN * Skin Color/ConditionQuestionAnswerDate of AssessmentAuthorSkin Color/Condition (WDL)WDL111/12/2024 10:38 AM Lindsay Henson RN * PsychosocialQuestionAnswerDate of AssessmentAuthorPsychosocial (WDL)WDL 09/11/2025 10:38 AM Lindsay Henson RN * CardiovascularQuestionAnswerDate of AssessmentAuthorCardiovascular (WDL)WDL 09/11/2025 10:38 AM Lindsay Henson RN * GenitourinaryQuestionAnswerDate of AssessmentAuthorGenitourinary (WDL)WDL 09/11/2025 10:37 AM Lindsay Henson RN * MusculoskeletalQuestionAnswerDate of AssessmentAuthorMusculoskeletal (WDL)WDL 09/11/2025 10:38 AM Lindsay Henson RN * Vitals TimerQuestionAnswerDate of AssessmentAuthorRestart Vitals TimerYes 09/11/2025 11:50 AM Lindsay Henson RNRestart Vitals SdcdyMlv14/13/2025 10:06 AM Lindsay Henson RN * Respiratory (WDL)AnswerDate of WosglzosreXmektdPTL43/13/2025 10:38 AM Lindsay Oliver RN * TB ScreeningQuestionAnswerDate of AssessmentAuthorPatient has prolonged cough? No09/11/2025 10:09 AM ESTMader, , RNPatient has bloody cough?No 09/11/2025 10:09 AM Lindsay Henson RNPatient has fever?No09/11/2025 10:09 AM Lindsay Henson RNPatient has night sweats?No09/11/2025 10:09 AM Lindsay Oliver RNPatient has weight loss?No09/11/2025 10:09 AM Lindsay Henson RNPatient has positive PPD?No09/11/2025 10:09 AM Lindsay Henson RN * [place] Suicide Risk LevelAnswerDate of AssessmentAuthorNot at Suicide Risk 09/11/2025 10:07 AM Lindsay Henson RN * BEE (kcal)AnswerDate of JqajvslatmZhvpmx282521/13/2025 10:06 AM Lindsay Henson RN * Vital SignsQuestionAnswerDate of YmrkawogaiAojpokBE152/9409/11/2025 11:50 AM Lindsay Henson RNPulse11409/11/2025 11:50 AM Lindsay Henson RNResp16 09/11/2025 11:50 AM Lindsay Henson RNSpO2100111/12/2024 11:50 AM Lindsay Henson RN * Patient ObservationQuestionAnswerDate of UcqyoowcvjKuflixMxrkux0416/13/2025 10:06 AM Lindsay Henson RNWeight3712111/12/2024 10:06 AM Lindsay Henson RN * BSA (Calculated - sq m)AnswerDate of AssessmentAuthor2.21111/12/2024 10:06 AM Lindsay Henson RN * BMI (Calculated)AnswerDate of CgnacedjiuXxkhvt96. 10:06 AM Lindsay Oliver RN * Height and WeightQuestionAnswerDate of AssessmentAutThe [facility]Health Systemt MethodStated 09/11/2025 10:06 AM Lindsay Henson RN * Vital SignsQuestionAnswerDate of WqfzjyxnugZxgrdxDvfe09.7111/12/2024 10:06 AM Lindsay Henson RN * Weight in (lb) to have BMI = 25AnswerDate of IbzbypbwboYqwqfl128.6111/12/2024 10:06 AM Lindsay Henson RN documented as of this encounter Mental Status * Pain AssessmentQuestionAnswerEntry DateAuthorPain Assessment0-10111/12/2024 10:06 AM Lindsay Henson RNPain Mzehh76411/12/2024 10:06 AM Lindsay Henson RN * [place] Coma ScaleQuestionAnswerEntry DateAuthorEye Anzxvua962/13/2025 10:38 AM Lindsay Henson RNBest Motor Zaldglev830/13/2025 10:38 AM Lindsay Henson RNBest Verbal Cpxhfhyh306/13/2025 10:38 AM Lindsay Henson RN Indigo Coma Scale Rgsrv4405/13/2025 10:38 AM Lindsay Henson RN * Vital SignsQuestionAnswerEntry YffmColmvrTM108/9409/11/2025 11:50 AM Lindsay Henson RNPulse11409/11/2025 11:50 AM Lindsay Henson RNResp16111/12/2024 11:50 AM Lindsay Henson RNSpO2100111/12/2024 11:50 AM Lindsay Henson RN * Vital SignsQuestionAnswerEntry YjdzPikxniRzvl98.7111/12/2024 10:06 AM Lindsay Henson RN * NeurologicalQuestionAnswerEntry DateAuthorNeuro (WDL)WDL111/12/2024 10:38 AM Lindsay Henson RN documented in this encounter Discharge Instructions * Attachments The following attachments cannot be sent through Care Everywhere. * Abdominal pain (Brazilian) documented in this encounter Medications at Time of Discharge MedicationSigDispense QuantityRefillsLast FilledStart DateEnd Date famotidine (PEPCID) 20 mg tablet Take 1 tablet (20 mg total) by mouth in the morning and 1 tablet (20 mg total) before bedtime. 60 tablet 04/18/2025 hydrOXYzine (ATARAX) 50 mg tablet Take 1 tablet (50 mg total) by mouth daily as needed for itching. polysaccharide iron complex (PRO FE) 180 mg iron capsule Take 1 capsule by mouth 2 (two) times a day. sertraline (ZOLOFT) 25 mg tablet Take 1 tablet (25 mg total) by mouth in the morning. nitrofurantoin, macrocrystal-monohydrate, (MACROBID) 100 mg capsule Take 1 capsule (100 mg total) by mouth in the morning and 1 capsule (100 mg total) before bedtime. Do all this for 7 days. 14 capsule 512/documented as of this encounter ED Notes * Karthikeyan Johnson MD - 09/11/2025 10:11 AM EST Images from the original note were not included. [facility] - EMERGENCY Pt Name: Miladys Fernandez Birthdate: 2000 Chief Complaint: Chief Complaint Patient presents with ??? Abdominal Pain History of Present Illness: Patient is a 24-year-old female who arrives by private vehicle with upper abdominal pain for a couple of days. She states it feels like indigestion. She just found out a couple of days ago she is in his probably 4 or 5 weeks along. No vaginal or lower abdominal complaints. No prior problems with pancreas gallbladder or gastritis. Past Medical History: Past Medical History: Diagnosis Date ??? Acne ??? Anxiety ??? Asthma ??? Seizures ([facility]) Past Surgical History: Past Surgical History: Procedure Laterality Date ??? TYMPANOSTOMY TUBE PLACEMENT Family History: Family History Problem Relation Age of Onset ??? Anemia Mother ??? Migraines Mother ??? Arrhythmia Mother ??? Asthma Father ??? Autism Father ??? Asthma Brother ??? Autism Brother ??? Diabetes Maternal Uncle ??? Diabetes Maternal Grandfather ??? Stroke Paternal Grandmother ??? Heart defect Neg Hx ??? Seizures Neg Hx ??? Hypertension Neg Hx ??? Heart attack Neg Hx ??? Sudden Neg Hx ??? Clotting disorder Neg Hx ??? High Cholesterol Neg Hx ??? Thyroid Issues Neg Hx Social History: Social History Socioeconomic History ??? Marital status: Tobacco Use ??? Smoking status: Some Days Types: Vaping/E-cigarettes , Cigarettes Start date: 2017 Passive exposure: Yes ??? Smokeless tobacco: Never Substance and Sexual Activity ??? Alcohol use: No ??? Drug use: No ??? Sexual activity: Yes control/protection: None Social Drivers of Health Food Insecurity: No Food Insecurity (04/18/2025) Hunger Screening ??? Food Insecurity - Worry: Never True ??? Food Insecurity - Inability: Never True Review of Systems: Review of Systems Physical Exam: ED Triage Vitals [09/11/25 1006] Temp Heart Rate Resp BP SpO2 36.5 ??C (97.7 ??F) 105 18 128/87 100 % Temp src Heart Rate Source Patient Position BP Location FiO2 (%) -- -- -- -- -- Vitals: 09/11/25 1006 BP: 128/87 Temp: 36.5 ??C (97.7 ??F) Pulse: 105 Resp: 18 SpO2: 100% Height: 167.6 cm (5' 6 ) Weight: 105.2 kg (232 lb) Physical Exam Vitals and nursing note reviewed. Constitutional: Appearance: She is well-developed. HENT: Head: Normocephalic and atraumatic. Eyes: Conjunctiva/sclera: Conjunctivae normal. Pupils: Pupils are equal, round, and reactive to light. Cardiovascular: Rate and Rhythm: Normal rate and regular rhythm. Heart sounds: Normal heart sounds. Pulmonary: Effort: Pulmonary effort is normal. Breath sounds: Normal breath sounds. Abdominal: General: There is no distension. Palpations: Abdomen is soft. Comments: Minimal upper quadrant tenderness Musculoskeletal: General: Normal range of motion. Cervical back: Normal range of motion and neck supple. Skin: General: Skin is warm and dry. Findings: No rash. Neurological: Mental Status: She is alert and oriented to person, place, and time. Psychiatric: Behavior: Behavior normal. Procedure: Procedures Re-evaluation: Re-Evaluation Medical Decision Making Amount and/or Complexity of Data Reviewed Labs: ordered. Risk Prescription drug management. ED Course: Clinical Impressions as of 09/11/25 1046 Urinary tract infection without hematuria, site unspecified Epigastric pain , unspecified gestational age . ED Disposition None . Please note that portions of this note were completed with a voice recognition program. Efforts were made to edit the dictations but occasionally words are mis-transcribed. Karthikeyan Johnson MD 09/11/25 1012 * Lindsay Brambila RN - 09/11/2025 10:08 AM EST Presents with upper abd pain that radiates around to her back. States it started this am and woke her up from her sleep. Recent pos preg test at home LMP 11/6 documented in this encounter Plan of Treatment NameTypePriorityAssociated DiagnosesOrder ScheduleUltrasound abdomen limited ImagingRoutine Epigastric pain Expected: 09/11/2025, Expires: 09/11/2026documented as of this encounter Procedures Procedure NamePriorityDate/TimeAssociated DiagnosisCommentsURINE CULTURESTAT 09/11/2025 10:27 AM EST POCT , URINE (NUCG)Fwfuobp1209/11/2025 10:25 AM EST POCT NURSING URINE MACROSCOPIC BXEzdpvva08/13/2025 10:22 AM EST CBC WITH AUTO VGDPFYCCGUFGVLJD94/13/2025 10:18 AM EST HCG-BETA, SERUMSTAT Add-on09/11/2025 10:18 AM EST SGANBOECDL44/13/2025 10:18 AM EST COMPREHENSIVE METABOLIC HYXARODFZ55/13/2025 10:18 AM EST EXTRA TUBES BLUE ECXDdgvmru77/13/2025 10:17 AM EST EXTRA KEWJWWpvmpkx70/13/2025 10:17 AM EST documented in this encounter Results * Urine Culture Urine, Clean Catch Midstream (09/11/2025 10:27 AM EST)Component ValueRef RangeTest MethodAnalysis TimePerformed AtPathologist SignatureCULTURE IKFQGFO86-80,000 ORGANISMS/mL NORMAL UROGENITAL FLORA09/12/2025 1:04 PM EST [facility]ORATORYSpecimen (Source)Anatomical Location / LateralityCollection Method / VolumeCollection TimeReceived TimeUrineUrine specimen collection, clean catch / Vnbzbuz9109/11/2025 10:27 AM EST09/11/2025 10:41 AM EST Narrative Authorizing ProviderResult TypeResult Keli Johnson MDMICROBIOLOGY - GENERAL ORDERABLESFinal ResultPerforming OrganizationAddressCity/State/ZIP Code Phone Number [facility] [address] [place] [address], * (ABNORMAL) POCT , urine (09/11/2025 10:25 AM EST)ComponentValueRef RangeTest MethodAnalysis TimePerformed AtPathologist SignaturePO Urine PregnancyPositive(A)Negative, Hrtxaepbxgtxk84/13/2025 10:30 AM ESTPROSETON MEDICAL CENTERpecimen (Source)Anatomical Location / Laterality Collection Method / VolumeCollection TimeReceived QeydHzqoj62/13/2025 10:25 AM EST09/11/2025 10:30 AM EST Narrative Authorizing ProviderResult TypeResult Keli Johnson MDPOINT OF CARE TEST ORDERABLESFinal ResultPerforming OrganizationAddressCity/State/ZIP CodePhone Number [facility] [address] [place] [address], [place] * (ABNORMAL) POCT Nursing Urine Macroscopic UA (09/11/2025 10:22 AM EST) ComponentValueRef RangeTest MethodAnalysis TimePerformed AtPathologist SignaturePO Urine Specific Gravity1.0251.010, 1.015, 1.020, 1.9774809/11/2025 10:23 AM [facility] Urine Leukocyte Esterase Small(A)Iaikrwef25/13/2025 10:23 AM [facility] Urine AnvkzwtInifwqgvBynvrqik18/13/2025 10:23 AM ESTPROM[facility]IWH[facility] Urine pH6.05.0, 6.0, 6.5, 7.0, 7.5, 8.0, 8.5, 5. 10:23 AM [facility]PR[facility] Urine Bmqvafk52 mg/dL(A)Negative 09/11/2025 10:23 AM [facility] Urine Glucose GftwnwnqZnafngwh85/13/2025 10:23 AM [facility] Urine YjixcxuKgnbmyrvDozpkdmi44/13/2025 10:23 AM [facility] Urine Urobilinogen0.2 E.U./dL09/11/2025 10:23 AM [facility] Urine EjpmncpfzUijiumkkHgkhoehf51/13/2025 10:23 AM [facility] Urine Blood/HGBLarge(A)Negative 09/11/2025 10:23 AM [facility] (Source) Anatomical Location / LateralityCollection Method / VolumeCollection Time Received JrbtQoqfc57/13/2025 10:22 AM EST09/11/2025 10:23 AM EST Narrative Authorizing ProviderResult TypeResult StatusPaul R Walker MDPOINT OF CARE TEST ORDERABLESFinal ResultPerforming OrganizationAddressCity/State/ZIP CodePhone Number [facility] [address] [phone], * HCG, Quantitative, (09/11/2025 10:18 AM EST)ComponentValueRef Range Test MethodAnalysis TimePerformed AtPathologist SignatureSERUM B HCG,3RD I.S. 60mIU/mL09/11/2025 11:29 AM ESTAden[facility] (Source)Anatomical Location / LateralityCollection Method / VolumeCollection TimeReceived TimeBloodVenous blood / UnknownVenipuncture / Gesfuwr8809/11/2025 10:18 AM EST09/11/2025 10:19 AM EST Narrative [facility] - 09/11/2025 11:29 AM EST WEEKS (SINCE LMP) MIU/mL 3 WEEKS ?5 - 50 4 WEEKS ?5 - 426 5 WEEKS ?18 - 7,340 6 WEEKS ?1,080 - 56,500 7-8 WEEKS ?7,650 - 229,000 9-12 WEEKS ? 25,700 - 288,000 13-16 WEEKS ?13,300 - 254,000 17-24 WEEKS ?4,060 - 165,400 25-40 WEEKS ?3,640 - 117,000 MALES AND NON- FEMALES - <5 MIU/mL This test has been FDA approved for use in only. ??Elevated levels are not necessarily diagnostic for trophoblastic or nontrophoblastic neoplasms. Authorizing ProviderResult TypeResult StatusKarthikeyan Johnson MDLAB BLOOD ORDERABLES Final ResultPerforming OrganizationAddressCity/State/ZIP CodePhone Number [facility] [address] [place] [address], * Lipase (09/11/2025 10:18 AM EST)ComponentValueRef RangeTest MethodAnalysis TimePerformed AtPathologist XjljhqnyeEULKJU0613 - 40 U/L111/12/2024 10:[address] [facility] MEDICAL CENTERpecimen (Source)Anatomical Location / LateralityCollection Method / VolumeCollection TimeReceived TimeBloodVenous blood / UnknownVenipuncture / Awyitad7409/11/2025 10:18 AM EST09/11/2025 10:19 AM EST Narrative Authorizing ProviderResult TypeResult StatusKarthikeyan HALLMAN BLOOD ORDERABLES Final ResultPerforming OrganizationAddressCity/State/ZIP CodePhone Number [facility] [address] [place] [address], * (ABNORMAL) Comprehensive metabolic panel (09/11/2025 10:18 AM EST)Component ValueRef RangeTest MethodAnalysis TimePerformed AtPathologist SignatureSODIUM 872373 - 146 mmol/L111/12/2024 10:41 AM [facility] POTASSIUM3.63.5 - 5.0 mmol/L111/12/2024 10:41 AM [facility]ENTERCHLORIDE10598 - 109 mmol/L111/12/2024 10:41 AM [facility] CENTERCARBON AFHLDRN6751 - 32 mmol/L111/12/2024 10:41 AM EST [facility]ENTERANION GAP75 - 15 mmol/L111/12/2024 10:41 AM [facility] CENTERBLOOD UREA AAZOMFKA693 - 23 mg/dL 09/11/2025 10:41 AM [facility] CENTERCREATININE0.780.40 - 1.00 mg/dL09/11/2025 10:41 AM [facility] CENTERComment: METHOD TRACEABLE TO IDMS VBCRVSQKLCQRWGH717(H)65 - 99 mg/dL09/11/2025 10:41 AM [facility] CENTERCALCIUM8.98.5 - 10.5 mg/dL09/11/2025 10:41 AM [facility] CENTERTOTAL PROTEIN7.96.0 - 8.0 g/dL 09/11/2025 10:41 AM [facility]ENTERALBUMIN4.13.2 - 5.3 g/dL09/11/2025 10:41 AM [facility]ENTERALKALINE JALIKMZPGIN1685 - 130 U/L111/12/2024 10:41 AM [facility]ENTERAST16<=41 U/L111/12/2024 10:41 AM [facility]ENTERALT17<=31 U/L111/12/2024 10:41 AM [facility] CENTERBILIRUBIN,TOTAL0.50.3 - 1.2 mg/dL09/11/2025 10:41 AM [facility] CENTEREGFR Non-Race Dependent>90>=60 ml/min/1.73sq.m 09/11/2025 10:41 AM [facility] CENTERComment: eGFR not reported due to non-numeric value for Creatinine. Reported eGFR is based on the CKD-EPI 2020 equation that does not use a race coefficient. Specimen (Source)Anatomical Location / LateralityCollection Method / Volume Collection TimeReceived TimeBloodVenous blood / UnknownVenipuncture / Unknown 09/11/2025 10:18 AM EST09/11/2025 10:19 AM EST Narrative Authorizing ProviderResult TypeResult StatusPajose luis Johnson MDLAB BLOOD ORDERABLES Final ResultPerforming OrganizationAddressCity/State/ZIP CodePhone Number [facility] [address] [place] [address], * (ABNORMAL) CBC auto differential (09/11/2025 10:18 AM EST)ComponentValueRef RangeTest MethodAnalysis TimePerformed AtPathologist VihrxvsfbYCZ65.7(H)4 - 11 10^09/11/2025 10:30 AM [facility] CENTERRBC Count4.69 3.8 - 5.2 10^1209/11/2025 10:30 AM [facility] Asyssqyjpk59.311.7 - 15.5 g/dL09/11/2025 10:30 AM [facility] CENTERHematocrit39.135 - 47 %09/11/2025 10:30 AM [facility]ENTERMCV8380 - 100 fL09/11/2025 10:30 AM [facility]ENTERMCH28.427 - 34 pg09/11/2025 10:30 AM [facility]ENTERMCHC34.032 - 36 g/dL09/11/2025 10:30 AM [facility] CENTERRDW12.911.5 - 15 %09/11/2025 10:30 AM ESTKETTERING HEALTH – SOIN MEDICAL CENTERPlatelet Vfuwm208694 - 450 10^09/11/2025 10:30 AM ESTKETTERING HEALTH – SOIN MEDICAL CENTERMPV7.97 - 12 fL09/11/2025 10:30 AM EST [facility]ENTERNeutrophils %61.2%09/11/2025 10:30 AM EST [facility]ITALLymphocytes %31.3%09/11/2025 10:30 AM EST [facility] HOS[facility]ITALMonocytes %6.0%09/11/2025 10:30 AM EST [facility] HOS[facility]ITALEosinophils %1.0%09/11/2025 10:30 AM EST [facility]ENTERBasophils %0.5%09/11/2025 10:30 AM EST [facility] HOSPITALNeutrophils Absolute (A)7.2(H)1.5 - 6.6 10^09/11/2025 10:30 AM ESTPROKAISER RICHMOND MEDICAL CENTERLymphocytes Absolute3.7(H)1.0 - 3.5 10^09/11/2025 10:30 AM ESTPROSAUNDERS COUNTY COMMUNITY HOSPITAL HOSPITALMonocytes Absolute0.70.0 - 0.9 10^09/11/2025 10:30 AM EST [facility] HOSPITALEosinophils Absolute0.10.0 - 0.4 10^9/L 09/11/2025 10:30 AM ESTPROKAISER RICHMOND MEDICAL CENTERBasophils Absolute 0.10.0 - 0.2 10^09/11/2025 10:30 AM [facility] Differential TypeAUTOMATED WBWZJCPEFEHR33/13/2025 10:30 AM [facility]pecimen (Source)Anatomical Location / Laterality Collection Method / VolumeCollection TimeReceived TimeBloodVenous blood / UnknownVenipuncture / Iyucmhm9509/11/2025 10:18 AM EST12/ 10:19 AM EST Narrative Authorizing ProviderResult TypeResult StatusKarthikeyan HALLMAN BLOOD ORDERABLES Final ResultPerforming OrganizationAddressCity/State/ZIP CodePhone Number [address] [address], * Light Blue Top (09/11/2025 10:17 AM EST)ComponentValueRef RangeTest Method Analysis TimePerformed AtPathologist SignatureExtra TubeAuto Resulted 09/11/2025 12:[address] [facility]UDE MEDICAL CENTERpecimen (Source) Anatomical Location / LateralityCollection Method / VolumeCollection Time Received TimeBloodVenous blood / Spsstit0609/11/2025 10:17 AM EST09/11/2025 10:23 AM EST Narrative Authorizing ProviderResult TypeResult StatusKarthikeyan Johnson MDLAB BLOOD ORDERABLES Final ResultPerforming OrganizationAddressCity/State/ZIP CodePhone Number [address] [address], documented in this encounter Visit Diagnoses Diagnosis Urinary tract infection without hematuria, site unspecified- Primary Epigastric pain Abdominal pain, epigastric , unspecified gestational age documented in this encounter Administered Medications Medication OrderMAR ActionAction DateDoseRateSite famotidine (PF) (PEPCID) injection 20 mg 20 mg, intravenous, Once, On 09/11/25 at 1015, For 1 dose, Dilute to total volume of 5 mL with 0.9% sod chl and administer IVP over 2 minutes. Given09/11/2025 10:30 AM EST20 mg nitrofurantoin (macrocrystal-monohydrate) (MACROBID) 100 mg capsule 100 mg 100 mg, oral, Once, On 09/11/25 at 1116, For 1 dose, Indication: Uncomplicated UTI Given09/11/2025 11:46 AM GNT924 mg ondansetron (PF) (ZOFRAN) injection 4 mg 4 mg, intravenous, Once, On 09/11/25 at 1058, For 1 dose, Intravenous administration preferred to be given over 2-5 minutes. Given09/11/2025 11:00 AM EST4 mg sodium chloride 0.9 % bolus 500 mL, intravenous, at 968 mL/hr, Administer over 31 Minutes, Once, On 09/11/25 at 1058, For 1dose New Bag09/11/2025 11:03 AM SAW101 mL968 mL/hr sodium chloride 0.9 % flush 3 mL 3 mL, intravenous, As needed, line care, before and after each intermittent use, Starting on 09/11/25 at 1011 documented in this encounter Active and Recently Administered Medications Times are shown in EST.Medication Order/ famotidine (PF) (PEPCID) injection 20 mg (COMPLETED) 20 mg, intravenous, Once, On 09/11/25 at 1015, For 1 dose, Dilute to total volume of 5 mL with 0.9% sod chl and administer IVP over 2 minutes. * 1030 (Given - Provider: Lindsay Brambila, SINAN) nitrofurantoin (macrocrystal-monohydrate) (MACROBID) 100 mg capsule 100 mg (COMPLETED) 100 mg, oral, Once, On 09/11/25 at 1116, For 1 dose, Indication: Uncomplicated UTI * 1146 (Given - Provider: Lindsay Brambila, RN) ondansetron (PF) (ZOFRAN) injection 4 mg (COMPLETED) 4 mg, intravenous, Once, On 09/11/25 at 1058, For 1 dose, Intravenous administration preferred to be given over 2-5 minutes. * 1100 (Given - Provider: Lindsay Brambila, RN) sodium chloride 0.9 % bolus (COMPLETED) 500 mL, intravenous, at 968 mL/hr, Administer over 31 Minutes, Once, On 09/11/25 at 1058, For 1dose * 1103 (New Bag - Provider: Lindsay Brambila, RN) * 1134 (Stop Bag - Provider: Lindsay Brambila, RN) Medication Order/ sodium chloride 0.9 % flush 3 mL 3 mL, intravenous, As needed, line care, before and after each intermittent use, Starting on 09/11/25 at 1011 documented in this encounter Care Teams Team MemberRelationsProvidence St. Joseph Medical CenterpecialtyStart DateEnd [facility] Services[address] [place], [place] PCP - GeneralFamiarnold Medicine04/18/25documented as of this encounter
--- OUTSIDE RECORDS SUMMARY | 2025-09-11 16:01 | XMS_ITS | Encounter Summary ---
Author Organization [facility] tem Address [facility] [place] [id number] [address] [place] [address] Care Team Providers Care Communication Clerk Name Role Phone Services, [facility] Primary Care Provider Reason for Visit * ReasonCommentsAbdominal PainPt is 4-6 week . Was here earlier today and states that her ABD pain and nausea is not better. Encounter Details DateTypeDepartmentCare Team (Latest Contact Info)Bdcteksoske16/13/2025 4:01 PM EST - 09/11/2025 4:[address] [facility] - Emergency [address] [place] [id number] Uriel Nesbitt, DO [address] [place] [address] Nausea and vomiting in prior to 22 weeks gestation (Primary Dx) Discharge Disposition: Home Social History Tobacco UseTypesPacks/DayYears UsedDateSmoking Tobacco: Some DaysCigarettes8 Started: 2018Vaping/E-cigarettesPassive Smoke Exposure: YesSmokeless Tobacco: NeverAlcohol UseStandard Drinks/WeekCommentsNo0 (1 standard drink = 0.6 oz pure alcohol)ChildcareAnswerDate StkzbpszBjufmqdibCaocjdr71/12/2019EmploymentAnswer Date ZwxtbmpmUjhjhomxqiCdjiezp39/12/2019Hunger ScreeningAnswerDate Recorded Within the past 12 months we worried whether our food would run out before we got money to buy more.Never True09/11/2025Within the past 12 months the food we bought just didn't last and we didn't have money to get more.Never True 09/11/2025Purpose - LifeAnswerDate RecordedPurpose and direction in lifeUnknown 1CommentsYesSex and Gender InformationValueDate RecordedSex Assigned at BirthNot on fileLegal MhoButxsz77/06/2015 12:03 PM EDTGender IdentityNot on fileSexual OrientationNot on filedocumented as of this encounter Last Filed Vital Signs Vital SignReadingTime TakenCommentsBlood Uoqdlhdx066/8109/11/2025 4:53 PM EST Jqaxr462209/11/2025 4:53 PM ESTTemperature--Respiratory Gzul328711/12/2024 4:53 PM ESTOxygen Bklejoybmc89%09/11/2025 4:53 PM ESTInhaled Oxygen Concentration-- Nejgrd106.2 kg (232 lb)09/11/2025 4:07 PM YKHVtwlzw361.6 cm (5' 6 )09/11/2025 4:07 PM ESTBody Mass Index37.45111/12/2024 4:07 PM ESTdocumented in this encounter Functional Status * SafetyQuestionAnswerDate of AssessmentAuthorCall Frank Within ReachYes 09/11/2025 4:44 PM Sol Murray RNBed In Lowest KpjgenliYgh58/13/2025 4:44 PM Sol Murray RNBed Wheels GyozaaHpq24/13/2025 4:44 PM EST Sol Richards RN * [...] Kumar Jr., RN * BEE (kcal)AnswerDate of YozcgschtaSaciac042305/13/2025 4:07 PM Maximino Kumar Jr., SINAN * Pain AssessmentQuestionAnswerDate of AssessmentAuthorPain LocationAbdomen 09/11/2025 4:07 PM Maximino Kumar Jr., RNPain XdsucqkrepzEhvpmv68/13/2025 4:07 PM Maximino Kumar Jr., RNPain TypeAcute pain09/11/2025 4:07 PM Maximino Espinoza Jr., RNPain Assessment0-10111/12/2024 4:07 PM Maximino Kumar Jr., RNPain Nclhn6693/13/2025 4:07 PM Maximino Kumar Jr., RN * [place] Coma ScaleQuestionAnswerDate of AssessmentAuthorEye Bgnhuyb636/13/2025 4:09 PM Maximino Kumar Jr., RNBest Motor Nhinsmjk705/13/2025 4:09 PM Maximino Espinoza Jr., RNBest Verbal Gbinozji355/13/2025 4:09 PM Maximino Kumar Jr., RNGlasgow Coma Scale Ptmoc5602/13/2025 4:09 PM Maximino Kumar Jr. RN * Patient ObservationQuestionAnswerDate of AwtzadhfamNyfnuuJpdqgc1339/13/2025 4:07 PM Maximino uKmar Jr. UBWpnpcv574944/13/2025 4:07 PM Maximino Kumar Jr. RN * BSA (Calculated - sq m)AnswerDate of AssessmentAuthor2. 4:07 PM Maximino Kumar Jr., RN * BMI (Calculated)AnswerDate of GwduouuytrOonkkk67. 4:07 PM Maximino Espinoza Jr., RN * [...] Patient Alert, Oriented and Able to Follow BmmazpurCnn01/13/2025 4:10 PM Maximino Espinoza Jr., RNFall Prevention ScreenDoes Not Apply to Patient - Screening Ztsxdzgt38/13/2025 4:10 PM Maximino Kumar Jr. RN * Vital SignsQuestionAnswerDate of LughvjhrvcNajdiiFQ757/8109/11/2025 4:53 PM Sol Murray RNPulse5609/11/2025 4:53 PM Sol Murray RNResp18 09/11/2025 4:53 PM Sol Murray RNSpO29809/11/2025 4:53 PM Sol Tavares RNBP LocationLeft arm09/11/2025 4:53 PM Sol Murray RNBP BshqucZrepuwazo49/13/2025 4:53 PM Sol Murray RNPatient Position Jzohmue1909/11/2025 4:53 PM Sol Murray RN * Oxygen [...] 4:09 PM Maximino Kumar Jr., RN * Family/Fire Marshal NotifiedQuestionAnswerDate of AssessmentAuthorName of Person Notified/or to be Notified of VnsbndnhkTxzmmd81/13/2025 4:09 PM Maximino Espinoza Jr., RNFamily/Fire Marshal notified of Emergency Department Admission?Family oswdrzn7009/11/2025 4:09 PM Maximino Kumar Jr. RN * Weight in (lb) to have BMI = 25AnswerDate of PclaoyjwhlOnxbcu044.6111/12/2024 4:07 PM Maximino Kumar Jr. RN * [place] Suicide BehaviorQuestionAnswerDate of AssessmentAuthor6. Have you ever [...] Jr., RN * AbdominalQuestionAnswerDate of AssessmentAuthorLast BM Dpin2505364/13/2025 4:41 PM Sol Murray RNPassing DssmskUaq13/13/2025 4:41 PM Sol Tavares RNBowel Sounds (All Quadrants)Gwygzs9209/11/2025 4:41 PM Sol Tavares RNAbdomen AssessmentSoft;Obese09/11/2025 4:41 PM Slo Tavares RNGI SymptomsNausea;Abztinnc77/13/2025 4:41 PM Sol Murray RNGastrointestinal (WDL)X111/12/2024 4:41 [...] PM Maximino Espinoza Jr., RNPatient has positive PPD?Trwpyrb4009/11/2025 4:10 PM Maximino Espinoza Jr., RN * [place] Suicide Risk LevelAnswerDate of AssessmentAuthorNot at Suicide Risk 09/11/2025 4:09 PM Maximino Kumar Jr., RN * SafetyQuestionAnswerDate of AssessmentAuthorHospital ID RjjlLr0609/11/2025 4:44 PM Sol Murray RNCall Frank Within XdyhmKqc23/13/2025 4:44 PM Sol Tavares RNBed In Lowest GimpwocoJqt79/13/2025 4:44 PM Sol Murray RNBed Wheels UlsnmoHca27/13/2025 4:44 PM Sol Murray RNSide Rails Up (Number)112 4:44 PM Sol Murray RN * BEE (kcal)AnswerDate of FebdfthkpuDfwyze208510/13/2025 4:07 PM Maximino Kumar Jr., RN * Patient ObservationQuestionAnswerDate of AyuxycqdwqYvegseOhefeg2146/13/2025 4:07 PM Maximino Kumar Jr., RNWeight3712111/12/2024 4:07 PM Maximino Kumar Jr., RN * BSA (Calculated - sq m)AnswerDate of [facility].21111/12/2024 4:07 PM Maximino Kumar Jr., RN * BMI (Calculated)AnswerDate of KdykuuemyvUisocq17. 4:07 PM Maximino Espinoza Jr., RN * Height and WeightQuestionAnswerDate of [facility] MethodStated 09/11/2025 4:07 PM Maximino Kumar Jr., RN * Vital SignsQuestionAnswerDate of WtdmbjthotHfbujbAV534/8109/11/2025 4:53 PM Sol Murray RNPulse5609/11/2025 4:53 PM Sol Murray RNResp18 09/11/2025 4:53 PM Sol Murray RNSpO29809/11/2025 4:53 PM Sol Tavares RNBP LocationLeft arm09/11/2025 4:53 PM Sol Murray RNBP FfaxqkYbatafwnf98/13/2025 4:53 PM Sol Murray RNPatient Position Yjqcsgl0009/11/2025 4:53 PM Sol Murray RN * Weight in (lb) to have BMI = 25AnswerDate of PijvocmrudWjkqpb044.6111/12/2024 4:07 PM Maximino Kumar Jr. RN documented as of this encounter Mental Status * Pain AssessmentQuestionAnswerEntry DateAuthorPain NaebpmbiOkmhsqv77/13/2025 4:07 PM Maximino Kumar Jr., RNPain JowxkngmudsTboswm90/13/2025 4:07 PM Maximino Espinoza Jr., RNPain Assessment0-10111/12/2024 4:07 PM Maximino Kumar Jr., BATOOLain Vnljy0859/13/2025 4:07 PM Maximino Kumar Jr., RN * [place] Coma ScaleQuestionAnswerEntry DateAuthorEye Lazpaoe882/13/2025 4:09 PM Maximino Kumar Jr., RNBest Motor Qdmyqflu583/13/2025 4:09 PM Maximino Kumar Jr., RNBest Verbal Zurgybkp463/13/2025 4:09 PM Maximino Kumar Jr., RNGlasgow Coma Scale Muilp1420/13/2025 4:09 PM Maximino Kumar Jr., RN * Vital SignsQuestionAnswerEntry BatfCrplvxXP388/8109/11/2025 4:53 PM Sol Tavares RNPulse5609/11/2025 4:53 PM Sol Murray RNResp18 09/11/2025 4:53 PM Sol Murray RNSpO29809/11/2025 4:53 PM Sol Tavares RNBP LocationLeft arm09/11/2025 4:53 PM Sol Murray RNBP JexqbjMteanqqul70/13/2025 4:53 PM Sol Murray RNPatient Position Kjinyxw5909/11/2025 4:53 PM Sol Murray RN * Oxygen TherapyQuestionAnswerEntry DateAuthorO2 DeviceNone (Room air)09/11/2025 4:53 PM Sol Murray RN * AbdominalQuestionAnswerEntry DateAuthorLast BM Smps6273128/13/2025 4:41 PM EST Sol Richards RNPassing AkaukeSfa07/13/2025 4:41 PM Sol Murray RNAbdomen AssessmentSoft;Obese09/11/2025 4:41 PM Sol Murray RNGI SymptomsNausea;Grntcutf63/13/2025 4:41 PM Sol Murray RN documented in [...] for up to 3 days. 12 tablet / nitrofurantoin, macrocrystal-monohydrate, (MACROBID) 100 mg capsule Take 1 capsule (100 mg total) by mouth in the morning and 1 capsule (100 mg total) before bedtime. Do all this for 7 days. 14 capsule /documented as of this encounter ED Notes * Uriel Nesbitt, DO - 09/11/2025 4:29 PM EST Images from the original note were not included. [facility] - EMERGENCY Pt Name: Miladys Fernandez Birthdate: [...] motor subscore is 6. Procedure: Procedures Re-evaluation: Theresa Castellon (scribe), documented on behalf and in [...] encounter Care Teams Team MemberRelationshipSpecialtyStart DateEnd Date [facility] [address] [place], [place] PCP - GeneralFamily Medicine04/18/25documented as of this encounter
[2025-09-19 15:20] VITALS: BP 136/84; PULSE 102; TEMP 36.8; O2SAT 99; BMI 37.4
--- NOTE | 2025-09-19 15:40 | ED.GENADUL1 ---
HPI HPI - General Adult General Chief complaint: OB/Uterine Contractions Stated complaint: 6 WEEKS SPOTTING Time Seen by Provider: 09/19/25 15:35 Source: patient Mode of arrival: walk-in History of Present Illness HPI narrative: 24-year-old female presented to the emergency department for vaginal bleeding. She states she is and she would be about 6 weeks by dates. She was seen here 2 days ago and had an hCG titer 91. Electronic health record indicates her blood type is O+. She has had continued bleeding and she came in here to get checked. Related Data Home Medications ?Medication ?Instructions ?Recorded ?Confirmed nitrofurantoin 100 mg PO BID 09/17/25 09/19/25 monohydrate/macrocrystals 100 mg capsule (Macrobid) Allergies Allergy/AdvReac Type Severity Reaction Status Date / Time Penicillins Allergy Intermediate Swelling Verified 09/17/25 14:33 of Lip/Tongue/Throat Review of Systems ROS Narrative A ten point review of systems is negative except as noted above. PFSH PFSH Social History Little interest or pleasure in doing things: not at all Feeling down, depressed, or hopeless: not at all Exam Narrative Exam Narrative: Nurses note and vital signs reviewed General:The patient appears well and in no apparent distress.Patient is resting comfortably on cart. Skin:Warm, dry, no pallor noted.There is no rash noted. Head:Normocephalic, atraumatic Eye: Normal conjunctiva, no drainage Ears, Nose, Mouth, and Throat: oral mucosa is moist. Nares patent. Cardiovascular:Regular Rate and Rhythm Respiratory:Patient is in no distress, no accessory muscle use, lungs are clear to auscultation, no wheezing, rales or rhonchi Back:non-tender GI: Soft and nontender Musculoskeletal: The patient has no evidence of calf tenderness, no pitting edema, symmetrical pulses noted bilaterally Neurological:A&O, normal speech Psychiatric:Cooperative Constitutional Vital Signs, click to edit/add: Last Vital Signs Temp 98.3 F 09/19/25 15:20 Pulse 102 H 09/19/25 15:20 Resp 18 09/19/25 15:20 BP 136/84 09/19/25 15:20 Pulse Ox 99 09/19/25 15:20 O2 Del Method Room Air 09/19/25 15:20 Course Vital Signs Vital signs: Vital Signs Temperature 98.3 F 12/21/25 15:20 Pulse Rate 102 H 09/19/25 15:20 Respiratory Rate 18 09/19/25 15:20 Blood Pressure 136/84 09/19/25 15:20 Pulse Oximetry 99 09/19/25 15:20 Oxygen Delivery Method Room Air 09/19/25 15:20 Temperature 98.3 F 09/19/25 15:20 Pulse Rate 102 H 09/19/25 15:20 Respiratory Rate 18 09/19/25 15:20 Blood Pressure 136/84 09/19/25 15:20 Pulse Oximetry 99 09/19/25 15:20 Oxygen Delivery Method Room Air 09/19/25 15:20 Medical Decision Making MDM Narrative Medical decision making narrative: 2 days ago her hCG titer was 91 and the date is 113. It did not double. Blood type is O+. Case discussed with Dr. French and the patient will be discharged home and will follow-up in the office this week. Findings were thoroughly discussed with the patient. She was advised of the possibility of a miscarriage. I have no clinical suspicion of ectopic . Differential Diagnosis Differential Diagnosis: Miscarriage, threatened miscarriage Lab Data Lab results reviewed: Yes I reviewed the patient's lab results Labs: Lab Results 09/19/25 Range/Units 15:44 WBC 9.0 (4.0-11.0) 10^3/uL RBC 4.42 (4.20-5.40) 10^6/uL Hgb 12.7 (12.0-16.0) g/dL Hct 38.0 (36.0-48.0) % MCV 86.0 (81.0-99.0) fL MCH 28.7 (26.7-34.0) pg MCHC 33.4 (29.9-35.2) g/dL RDW 11.6 (11.0-15.0) % Plt Count 411 (150-450) 10^3/uL MPV 9.7 (9.5-13.5) fL Neut % (Auto) 58.5 (43.0-75.0) % Lymph % (Auto) 29.9 (20.5-60.0) % Charles % (Auto) 6.4 (1.7-12.0) % Eos % (Auto) 3.9 (0.9-7.0) % Baso % (Auto) 0.9 (0.2-2.0) % Neut # (Auto) 5.3 (1.4-6.5) 10^3/uL Lymph # (Auto) 2.7 (1.2-3.8) 10^3/uL Charles # (Auto) 0.6 (0.3-0.8) 10^3/uL Eos # (Auto) 0.4 (0.0-0.7) 10^3/uL Baso # (Auto) 0.1 (0.0-0.1) 10^3/uL Abs Immat Gran (auto) 0.04 H (0.00-0.03) 10^3/uL Imm/Tot Granulo (auto) 0.4 (0.0-0.5) % Sodium 140 (136-145) mmol/L Potassium 3.5 (3.5-5.1) mmol/L Chloride 101 (98-107) mmol/L Carbon Dioxide 27.1 (21.0-32.0) mmol/L Anion Gap 15.4 BUN 5.0 L (7.0-18.0) mg/dL Creatinine 0.73 (0.55-1.02) mg/dL Est GFR ( Amer) >60 (>=60 mL/min/1.73m^2) Est GFR (Non-Af Amer) >60 (>=60 mL/min/1.73m^2) BUN/Creatinine Ratio 6.8 Glucose 94 (74-106) mg/dL Calcium 8.8 (8.5-10.1) mg/dL HCG, Quant 113 mIU/mL Discharge Plan Discharge Chief Complaint: OB/Uterine Contractions Clinical Impression: Threatened miscarriage Patient Disposition: Home, Self-Care Time of Disposition Decision: 16:44 Condition: Good Mode of Transportation: Private Vehicle Prescriptions / Home Meds: No Action nitrofurantoin monohyd/m-cryst [Macrobid] 100 mg capsule 100 mg PO BID Rx Instructions: must administer with a meal/food Print Language: Turkish Instructions: Threatened Miscarriage (ED) Additional Instructions: Call Dr. French's office in the morning. Referrals: Caleb French DO [Physician, INFORMATION SECURITY ANALYST] [facility] [Primary Care Provider, Unknown] - 1 week
[2025-09-19 15:51] LABS: Hematocrit 38.0 % (36.0-48.0); Hemoglobin 12.7 g/dL (12.0-16.0); Immature Granulocytes Abs Auto 0.04 10^3/uL (0.00-0.03); Immature Granulocytes Pct Auto 0.4 % (0.0-0.5); Lymphocytes Absolute Auto 2.7 10^3/uL (1.2-3.8); Mean Corpuscular HGB Conc 33.4 g/dL (29.9-35.2); Mean Corpuscular Hemoglobin 28.7 pg (26.7-34.0); Mean Corpuscular Volume 86.0 fL (81.0-99.0); Platelet Count 411 10^3/uL (150-450); Red Blood Count 4.42 10^6/uL (4.20-5.40); White Blood Count 9.0 10^3/uL (4.0-11.0)
--- OUTSIDE RECORDS SUMMARY | 2025-09-19 16:05 | XMS_ITS | Clinical Summary ---
Author Organization [employer] tem Address [id number] [address] [place] [address] Care Team Providers Care Ecotherapist Name Role Phone Services, [facility] Primary Care Provider Allergies Active AllergyReactionsCriticalityNoted DateCommentsPenicillinsAnaphylaxisHigh [...] mg total) before bedtime. 60 tablet 5Active doxylamine-pyridoxine, vit B6, (DICLEGIS) 10-10 mg [...] at bedtime on day 4. 11 tablet 5Active dicyclomine (BENTYL) 20 mg tablet Take 1 [...] up to 10 doses. 10 tablet Discontinued() nitrofurantoin, macrocrystal-monohydrate, (MACROBID) 100 mg capsule Take 1 capsule (100 mg total) by mouth in the morning and 1 capsule (100 mg total) before bedtime. Do all this for 7 days. 14 capsule Expired metoclopramide (REGLAN) 10 mg tablet Indications:Nausea and vomiting in prior to 22 weeks gestationTake 1 tablet (10 mg total) by mouth every 6 (six) hours as needed (vomiting) for up to 3 days. 12 tablet Expired Active Problems CommentsYes No known active problems Encounters DateTypeDepartmentCare OlicKvcglgfrrjb59/15/2025Results Follow-Up [facility] - Emergency [address] [place] [phone] Fabienne Johnson RN Urine Culture Urine, Clean Catch Srptmqxwq39/13/2025 4:01 PM EST - 09/11/2025 4:59 PM ESTEmergency [facility] - Emergency [address] [place] [address] Uriel Nesbitt, DO Nausea and vomiting in prior to 22 weeks gestation (Primary Dx) Discharge Disposition: Home09/11/2025 10:03 AM EST - 09/11/2025 11:52 AM EST Emergency [facility] - Emergency [address] [place] [phone] Karthikeyan Johnson MD Urinary tract infection without [...] standard drink = 0.6 oz pure alcohol)ChildcareAnswerDate VakfqsqxFzkjxjkzeXqjplnp62/12/2019EmploymentAnswer Date RusrhgixXfmphqsvlpZadexnf86/12/2019Hunger ScreeningAnswerDate Recorded Within the past 12 months we worried whether our food would run out before we got money to buy more.Never True09/11/2025Within the past 12 months the food we bought just didn't last and we didn't have money to get more.Never True 09/11/2025Purpose - LifeAnswerDate RecordedPurpose and direction in lifeUnknown 1CommentsYesSex and Gender InformationValueDate RecordedSex Assigned at BirthNot on fileLegal UivGvpzxq63/06/2015 12:03 PM EDTGender IdentityNot on fileSexual OrientationNot on file Last Filed Vital Signs Vital SignReadingTime TakenCommentsBlood Mbcpowzc118/8109/11/2025 4:53 PM EST Fkdne896309/11/2025 4:53 PM ITIWxsdykkjdya59.5 ??C (97.7 ??F)09/11/2025 10:06 AM ESTRespiratory Kxun953111/12/2024 4:53 PM ESTOxygen Yorqusumdb49%09/11/2025 4:53 PM ESTInhaled Oxygen Concentration--Zhcsii881.2 kg (232 lb)09/11/2025 4:07 PM FDBNexewj692.6 cm (5' 6 )09/11/2025 4:07 PM ESTBody Mass Index37.45111/12/2024 4:07 PM EST Plan of Treatment Health MaintenanceDue DateLast DoneCommentsTobacco Npmyenfxav22/01/2000 Depression Aksozkdct30/01/2012dult BMI Follow Up Plan2017Pap Smear 2020TaP,Tdap and Td Vaccines (7 - Td or Tdap)/08/2011, 06/13/2005, 06/13/2005, Additional history existsInfluenza Eauxxbg8205/31/2025 08/19/2003Adult BMI Hfcygtjyd75Tobacco Dvacpbaaa81/13/2026 09/11/2025RSV ( or age 60+ yrs) (1 - 1-dose 75+ series)2074 Medical Devices Not on file Procedures Procedure NamePriorityDate/TimeAssociated DiagnosisCommentsURINE CULTURESTAT 09/11/2025 10:27 AM EST POCT , URINE (NUCG)Enpufzr7309/11/2025 10:25 AM EST POCT NURSING URINE MACROSCOPIC QQInyqjxn51/13/2025 10:22 AM EST HCG-BETA, SERUMSTAT Add-on09/11/2025 10:18 AM EST SFSHBSJIUJ37/13/2025 10:18 AM EST COMPREHENSIVE METABOLIC AABPVMHVA33/13/2025 10:18 AM EST CBC WITH AUTO JPZICRONWKAJURPD66/13/2025 10:18 AM EST EXTRA TUBES BLUE JLNBehatpx66/13/2025 10:17 AM EST EXTRA UNOJNKvatnud52/13/2025 10:17 AM EST from Last 3 Months Results * Urine Culture Urine, Clean Catch Midstream (09/11/2025 10:27 AM EST)Component ValueRef RangeTest MethodAnalysis TimePerformed AtPathologist SignatureCULTURE BJPOKYN74-28,000 ORGANISMS/mL NORMAL UROGENITAL FLORA09/12/2025 1:04 PM EST [facility] LABORATORYSpecimen (Source)Anatomical Location / LateralityCollection Method / VolumeCollection TimeReceived TimeUrineUrine specimen collection, clean catch / Lohxfia2109/11/2025 10:27 AM EST09/11/2025 10:41 AM EST Narrative Authorizing ProviderResult TypeResult StatusKarthikeyan Johnson MDMICROBIOLOGY - GENERAL ORDERABLESFinal ResultPerforming OrganizationAddressCity/State/ZIP Code Phone Number [facility] [address] [place] [address], [place] [phone] * (ABNORMAL) POCT , urine (09/11/2025 10:25 AM EST)ComponentValueRef RangeTest MethodAnalysis TimePerformed AtPathologist SignaturePOC Urine PregnancyPositive(A)Negative, Wqixpqpvzboki52/13/2025 10:30 AM ESTPROMED[facility]LLY[facility] OF HOLLYWOODpecimen (Source)Anatomical Location / Laterality Collection Method / VolumeCollection TimeReceived ZvoqSwvtw93/13/2025 10:25 AM EST09/11/2025 10:30 AM EST Narrative Authorizing ProviderResult TypeResult Keli Johnson MDPOINT OF CARE TEST ORDERABLESFinal ResultPerforming OrganizationAddressCity/State/ZIP CodePhone Number [facility] [address] [place] [address], [place] * (ABNORMAL) POCT Nursing Urine Macroscopic UA (09/11/2025 10:22 AM EST) ComponentValueRef RangeTest MethodAnalysis TimePerformed AtPathologist SignaturePOC Urine Specific Gravity1.0251.010, 1.015, 1.020, 1.4372609/11/2025 10:23 AM ESTPRORON[facility] Urine Leukocyte Esterase Small(A)Wsezzslf71/13/2025 10:23 AM ESTPROMEDISAN [facility] Urine DwktzgpCelzqiwdHjtmnluy56/13/2025 10:23 AM ESTPRORONALD [facility] Urine pH6.05.0, 6.0, 6.5, 7.0, 7.5, 8.0, 8.5, 5. 10:23 AM ESTPRORONALD [facility] Urine Gbxgykk65 mg/dL(A)Negative 09/11/2025 10:23 AM ESTPRORONALD [facility] Urine Glucose KuqfmmvvQrweqisw67/13/2025 10:23 AM ESTPROM[facility] Urine XaklimwSvrfblzpRgnuxydn84/13/2025 10:23 AM ESTPROM[facility] Urine Urobilinogen0.2 E.U./dL09/11/2025 10:23 AM ESTPRORONAL[facility] Urine EdwuothesObsyzejtSlrqipul62/13/2025 10:23 AM ESTPROM[facility] Urine Blood/HGBLarge(A)Negative 09/11/2025 10:23 AM [facility]imen (Source) Anatomical Location / LateralityCollection Method / VolumeCollection Time Received CzfgYmwwu31/13/2025 10:22 AM EST09/11/2025 10:23 AM EST Narrative Authorizing ProviderResult TypeResult StatusPajose luis Johnson [facility] ANNISTONOINT OF CARE TEST ORDERABLESFinal ResultPerforming OrganizationAddressCity/State/ZIP CodePhone Number [facility] [address] [place] [address], * (ABNORMAL) CBC auto differential (09/11/2025 10:18 AM EST)ComponentValueRef RangeTest MethodAnalysis TimePerformed AtPathologist IfxjxcsvuFYI62.7(H)4 - 11 10^L111/12/2024 10:30 AM ESTDAYTON [facility]OP[facility] Count4.69 3.8 - 5.2 10^1209/11/2025 10:30 AM [facility] Zgprniwych94.311.7 - 15.5 g/dL09/11/2025 10:30 AM [facility]ENTERHematocrit39.135 - 47 %09/11/2025 10:30 AM [facility]ENTERMCV8380 - 100 fL09/11/2025 10:30 AM [facility]ENTERMCH28.427 - 34 pg09/11/2025 10:30 AM [facility]ENTERMCHC34.032 - 36 g/dL09/11/2025 10:30 AM [facility] CENTERRDW12.911.5 - 15 %09/11/2025 10:30 AM [facility] CENTERPlatelet Stcnj380991 - 450 10^09/11/2025 10:30 AM [facility]ENTERMPV7.97 - 12 fL09/11/2025 10:30 AM EST [facility] HOSPITALNeutrophils %61.2%09/11/2025 10:30 AM EST [facility]ITALLymphocytes %31.3%09/11/2025 10:30 AM EST [facility] HOSPITALMonocytes %6.0%09/11/2025 10:30 AM EST [facility] HOSPITALEosinophils %1.0%09/11/2025 10:30 AM EST [facility]ITALBasophils %0.5%09/11/2025 10:30 AM EST [facility]ITALNeutrophils Absolute (A)7.2(H)1.5 - 6.6 10^09/11/2025 10:30 AM ESTPROMEDIKAISER RICHMOND MEDICAL CENTERLymphocytes Absolute3.7(H)1.0 - 3.5 10^09/11/2025 10:30 AM ESTPROSHARP GROSSMONT HOSPITALMonocytes Absolute0.70.0 - 0.9 10^09/11/2025 10:30 AM EST [facility]ALEosinophils Absolute0.10.0 - 0.4 10^9/L 09/11/2025 10:30 AM ESTHIGHLAND DISTRICT HOSPITALBasophils Absolute 0.10.0 - 0.2 10^9/L111/12/2024 10:30 AM [facility] Differential TypeAUTOMATED WVPFJYPRJKYL75/13/2025 10:30 AM [facility]USpechiggins [facility] hospital (Source)Anatomical Location / Laterality Collection Method / VolumeCollection TimeReceived TimeBloodVenous blood / UnknownVenipuncture / Fftmbis2009/11/2025 10:18 AM EST09/11/2025 10:19 AM EST Narrative Authorizing ProviderResult TypeResult StatusKarthikeyan Johnson MDLAB BLOOD ORDERABLES Final ResultPerforming OrganizationAddressCity/State/ZIP CodePhone Number [facility] [address] [place] [address], * HCG, Quantitative, (09/11/2025 10:18 AM EST)ComponentValueRef Range Test MethodAnalysis TimePerformed AtPathologist SignatureSERUM B HCG,3RD I.S. 60mIU/mL09/11/2025 11:29 AM [facility]USpechigg[facility] (Source)Anatomical Location / LateralityCollection Method / VolumeCollection TimeReceived TimeBloodVenous blood / UnknownVenipuncture / Kndbyft2809/11/2025 10:18 AM EST09/11/2025 10:19 AM EST Narrative [facility] - 09/11/2025 11:29 AM EST WEEKS [...] TypeResult StatusKarthikeyan HALLMAN BLOOD ORDERABLES Final ResultPerforming OrganizationAddressCity/[facility]/ZIP CodePhone Number [address] [address], * Lipase (09/11/2025 10:18 AM EST)ComponentValueRef RangeTest MethodAnalysis TimePerformed AtPathologist QggudeuynFGRFDK7675 - 40 U/L111/12/2024 10:38 AM ESTPROMEDICA HOLLYWOOD COMMUNITY HOSPITAL OF HOLLYWOODpecimen (Source)Anatomical Location / LateralityCollection Method / VolumeCollection TimeReceived TimeBloodVenous blood / UnknownVenipuncture / Ippttpo1709/11/2025 10:18 AM EST09/11/2025 10:19 AM EST Narrative Authorizing ProviderResult TypeResult StatusKarthikeyan HALLMAN BLOOD ORDERABLES Final ResultPerforming [facility], SmyrnaAddHahnemann [facility]/[place] [address], * (ABNORMAL) Comprehensive metabolic panel (09/11/2025 10:18 AM EST)Component ValueRef RangeTest MethodAnalysis TimePerformed AtPathologist SignatureSODIUM 711391 - 146 mmol/L111/12/2024 10:41 AM [facility] POTASSIUM3.63.5 - 5.0 mmol/L111/12/2024 10:41 AM [facility]ENTERCHLORIDE10598 - 109 mmol/L111/12/2024 10:41 AM [facility] CENTERCARBON VJQRYLK0211 - 32 mmol/L111/12/2024 10:41 AM EST [facility]ITALANION GAP75 - 15 mmol/L111/12/2024 10:41 AM [facility] CENTERBLOOD UREA VKJYJGDN605 - 23 mg/dL 09/11/2025 10:41 AM [facility] CENTERCREATININE0.780.40 - 1.00 mg/dL09/11/2025 10:41 AM [facility] CENTERComment: METHOD TRACEABLE TO IDMS YHIQZWASMHWUCXO624(H)65 - 99 mg/dL09/11/2025 10:41 AM [facility] CENTERCALCIUM8.98.5 - 10.5 mg/dL09/11/2025 10:41 AM [facility] CENTERTOTAL PROTEIN7.96.0 - 8.0 g/dL 09/11/2025 10:41 AM [facility] CENTERALBUMIN4.13.2 - 5.3 g/dL09/11/2025 10:41 AM [facility] CENTERALKALINE LRNEVGEMAAS9592 - 130 U/L111/12/2024 10:41 AM [facility]ENTERAST16<=41 U/L111/12/2024 10:41 AM [facility]ENTERALT17<=31 U/L111/12/2024 10:41 AM [facility] CENTERBILIRUBIN,TOTAL0.50.3 - 1.2 mg/dL09/11/2025 10:41 AM [facility]ICAL CENTEREGFR Non-Race Dependent>90>=60 ml/min/1.73sq.m 09/11/2025 10:41 AM [facility] CENTERComment: eGFR not reported due to non-numeric value for Creatinine. Reported eGFR is based on the CKD-EPI 2020 equation that does not use a race coefficient. Specimen (Source)Anatomical Location / LateralityCollection Method / Volume Collection TimeReceived TimeBloodVenous blood / UnknownVenipuncture / Unknown 09/11/2025 10:18 AM EST09/11/2025 10:19 AM EST Narrative Authorizing ProviderResult TypeResult StatusKarthikeyan HALLMAN BLOOD ORDERABLES Final ResultPerforming OrganizationAddressCity/State/ZIP CodePhone Number [address] [place] [address], [place] * Light Blue Top (09/11/2025 10:17 AM EST)ComponentValueRef RangeTest Method Analysis TimePerformed AtPathologist SignatureExtra TubeAuto Resulted 09/11/2025 12:01 PM ESTPROMEDICA HOLLYWOOD COMMUNITY HOSPITAL OF HOLLYWOODpecimen (Source) Anatomical Location / LateralityCollection Method / VolumeCollection Time Received TimeBloodVenous blood / Spcbbnz0309/11/2025 10:17 AM EST09/11/2025 10:23 AM EST Narrative Authorizing ProviderResult TypeResult StatusKarthikeyan HALLMAN BLOOD ORDERABLES Final ResultPerforming OrganizationAddressCity/State/ZIP CodePhone Number [address] [place] [address], from Last 3 Months Care Teams Team MemberRelationshipSpecialtyStart DateEnd Date Services, [facility] [address], [place] PCP - GeneralFamily Medicine04/18/25
--- OUTSIDE RECORDS SUMMARY | 2025-09-19 16:05 | XMS_ITS | Encounter Summary ---
Author Organization [employer] [facility] tem Address [facility] [address] [place] [address] Care Team Providers Care Account Group Supervisor Name Role Phone Services, [facility] Primary Care Provider Encounter Details DateTypeDepartmentCare Team (Latest Contact Info)Nwukfiryoij03/13/2025Travel Social History Tobacco UseTypesPacks/DayYears UsedDateSmoking Tobacco: Some DaysCigarettes8 Started: 2018Vaping/E-cigarettesPassive Smoke Exposure: YesSmokeless Tobacco: NeverAlcohol UseStandard Drinks/WeekCommentsNo0 (1 standard drink = 0.6 oz pure alcohol)ChildcareAnswerDate DtokjxobFyuwpxaazDwwmmuz89/12/2019EmploymentAnswer Date PshjqfzoKkakwbigoqErtytpl65/12/2019Hunger ScreeningAnswerDate Recorded Within the past 12 months we worried whether our food would run out before we got money to buy more.Never True09/11/2025Within the past 12 months the food we bought just didn't last and we didn't have money to get more.Never True 09/11/2025Purpose - LifeAnswerDate RecordedPurpose and direction in lifeUnknown 1CommentsYesSex and Gender InformationValueDate RecordedSex Assigned at BirthNot on fileLegal LzlAozrts16/06/2015 12:03 PM EDTGender IdentityNot on fileSexual OrientationNot on filedocumented as of this encounter Plan of Treatment Not on file documented as of this encounter Visit Diagnoses Not on filedocumented in this encounter Care Teams Team MemberRelationshipSpecialtyStart DateEnd Date Services, [facility] [address] [place], [place] PCP - GeneralFamily Medicine04/18/25documented as of this encounter
--- OUTSIDE RECORDS SUMMARY | 2025-09-19 16:05 | XMS_ITS | Encounter Summary ---
Author Organization [facility] tem Address [facility] [address] [place] [address] Care Team Providers Care Swahili Teacher Name Role Phone Services, [facility] Primary Care Provider Encounter Details DateTypeDepartmentCare Team (Latest Contact Info)Wqxcvkrgyix93/15/2025Results Follow-Up [facility] - Emergency [address] [place] [phone] Fabienne Johnson, SINAN Urine Culture Urine, Clean Catch Midstream Social History Tobacco UseTypesPacks/DayYears UsedDateSmoking Tobacco: Some DaysCigarettes8 Started: 2018Vaping/E-cigarettesPassive Smoke Exposure: YesSmokeless Tobacco: NeverAlcohol UseStandard Drinks/WeekCommentsNo0 (1 standard drink = 0.6 oz pure alcohol)ChildcareAnswerDate TtmgvnluPalbcvzquXkntpab76/12/2019EmploymentAnswer Date FtqfdlxiDuxvwoaafoQceldal82/12/2019Hunger ScreeningAnswerDate Recorded Within the past 12 months we worried whether our food would run out before we got money to buy more.Never True09/11/2025Within the past 12 months the food we bought just didn't last and we didn't have money to get more.Never True 09/11/2025Purpose - LifeAnswerDate RecordedPurpose and direction in lifeUnknown 1CommentsYesSex and Gender InformationValueDate RecordedSex Assigned at BirthNot on fileLegal VctDcnrgk42/06/2015 12:03 PM EDTGender IdentityNot on fileSexual OrientationNot on filedocumented as of this encounter Plan of Treatment Not on file documented as of this encounter Visit Diagnoses Not on filedocumented in this encounter Care Teams Team MemberRelationshipSpecialtyStart DateEnd Date Services, [facility] [address] [place], [place] PCP - GeneralFamily Medicine04/18/25documented as of this encounter
--- OUTSIDE RECORDS SUMMARY | 2025-09-19 16:06 | XMS_ITS | Patient Health Record ---
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 Stress is when someone feels tense, nervous, anxious, or can't sleep at night because their mind is troubledSomewhatpatient entered dataIn the past year have you spent more than 2 nights in a row in a halfway, fci, fpc center, orjuvenile correctional facility?Nopatient entered dataAre you a refugee?No patient entered dataWhat country are you from?[place] Statespatient entered dataDo you feel physically and emotionally safe where you currently live?Yes patient entered dataIn the past year, have you been afraid of your partner or ex-partner?Nopatient entered dataPRAPARE Score:4PCMH and UDS Demographics Social InfoQuestionAnswerNotesPriResearch Medical Center Medical Home QuestionsDo you have any barriers [...] rid of a hangover?Nopatient entered dataCAGE- AID Uvisk4NuzdqhckqxqhasPqwwjsloXrcmueswIcxyox:3-4 cups per dayTobacco Use: Social InfoQuestionAnswerNotesTobacco Use/SmokingTobacco [...] W/U Status Risk Notes Problem Seasonal allergy (547750829) Seasonal all ergies (J30.2) ActiveconfirmedProblemAnxiety (40645616)Anxiety (F41.9)ActiveconfirmedProblem Hypothyroidism (10090448)Hypothyroidism (E03.9)ActiveconfirmedProblemVitamin D deficiency (21905477)Vitamin D deficiency (E55.9)ActiveconfirmedProblem Gastroesophageal reflux disease without esophagitis (548543367)Gastroesophageal reflux disease without esophagitis (K21.9)ActiveconfirmedProblemAllergic rhinitis (41414425)Allergic rhinitis, unspecified seasonality, unspecified trigger (J30.9)Activeconfirmed Plan Of Treatment No Information Insurance Providers Payer Name Payer Address Payer Phone Subscriber Number Group Number Insured Name Patient Relationship to Insured Coverage Start Date Coverage End Date [facility] [address] [place] [address] [id number] [place] Miladys Fernandez Self - patient is the insured 1 Medicaid CFC after [facility] [address] [place], [place] [id number], ShyannSelf - patient is the [id number] 2021 Medical (General) History Medical History History ICD Code Epilepsy G40.909 Pityriasis rosea L42 Mild intermittent asthma, unspecified wh ether complicated J45.20 Gastroesophageal reflux disease, unspeci fied whether esophagitis present K21.9 Anxiety F41.9 Surgical History Surgery Date(Month/Year) Bilateral Tubes - removed
[2025-09-19 16:22] LABS: Anion Gap 15.4; Blood Urea Nitrogen 5.0 mg/dL (7.0-18.0); Calcium 8.8 mg/dL (8.5-10.1); Carbon Dioxide 27.1 mmol/L (21.0-32.0); Chloride 101 mmol/L (98-107); Estimated GFR (African America >60 (>=60 mL/min/1.73m^2); Estimated GFR (Non-African Ame >60 (>=60 mL/min/1.73m^2); Glucose 94 mg/dL (74-106); Potassium 3.5 mmol/L (3.5-5.1); Sodium 140 mmol/L (136-145)
[2025-09-19 16:58] VITALS: BP 124/74; PULSE 78; O2SAT 100
== END 2025-09-19 16:59 | disposition home or self-care (01) ==
PROVIDERS: Emergency Provider Emergency Medicine
DX: O20.0 Threatened abortion (principal); Z3A.01 Less than 8 weeks gestation of pregnancy
CPT/HCPCS: 36415; 80048; 84702; 85025; 99283